=== PATIENT | male | born 1945 | race Caucasian/White ===

== ENCOUNTER → 2017-04-16 | Outpatient (CLI) | payer OTHER ==
[~2017-04-16] MED LIST: IOPAMIDOL (ISOVUE 370) 100 ML BTL IV ONE
== END ==
LOC: FIMAGING 14:58
PROVIDERS: ATTEND Internal Medicine Cardiovascular Disease
DX: I48.91 Unspecified atrial fibrillation (principal); I77.810 Thoracic aortic ectasia
CPT/HCPCS: 75572; Q9967

== ENCOUNTER 2017-04-19 11:19 | Observation (INO) | payer OTHER ==
[2017-04-19] MEDS ORDERED: NS 1,000 ML IV ONE (11:22)
--- NOTE | 2017-04-19 11:58 | CPEKG ---
Heart Rate: 87 RR Interval: 690 QRSD Interval: 84 QT Interval: 348 QTC Interval: 419 QRS [place]: -38 T Wave [place]: -5 EKG Severity - ABNORMAL ECG - EKG Impression: ATRIAL FIBRILLATION, V-RATE 74-111 EKG Impression: LOW VOLTAGE IN FRONTAL LEADS EKG Impression: BORDERLINE T ABNORMALITIES, INFERIOR LEADS EKG Impression: ATRIAL FIBRILLATION IS NEW IN COMPARISON TO PRIOR ECG Electronically Signed By: Josh Palumbo 20-Apr-2017 09:21:37
--- NOTE | 2017-04-19 11:58 | CPEKG ---
Heart Rate: 87 RR Interval: 690 QRSD Interval: 84 QT Interval: 348 QTC Interval: 419 QRS [place]: -38 T Wave [place]: -5 EKG Severity - ABNORMAL ECG - EKG Impression: ATRIAL FIBRILLATION, V-RATE 74-111 EKG Impression: LOW VOLTAGE IN FRONTAL LEADS EKG Impression: BORDERLINE T ABNORMALITIES, INFERIOR LEADS EKG Impression: ATRIAL FIBRILLATION IS NEW IN COMPARISON TO PRIOR ECG Electronically Signed By: Josh Palumbo 20-Apr-2017 09:21:37
--- NOTE | 2017-04-19 12:14 | PDHPUP ---
History & Physical Update H&P update statement: This history and physical update is based on an assessment of the patient which was completed after admission or registration (within 24 hours), but prior to the surgery/procedure. H&P update: H&P reviewed & patient examined, no change in patient's condition since H&P completed
[2017-04-19] MEDS ORDERED: BUPIVACAINE 0.5% 30 ML SDV ONE (12:23)
[2017-04-19] MEDS ORDERED: HEPARIN/DEXTROSE 25,000 UNIT/500 ML BAG ONE (12:23)
[2017-04-19] MEDS ORDERED: HEPARIN 10,000 UNIT/10 ML MDV ONE (12:23)
[2017-04-19] MEDS ORDERED: LIDOCAINE 1% 300 MG/30 ML SDV ONE (12:23)
[2017-04-19] MEDS ORDERED: IOPAMIDOL (ISOVUE-300) 100 ML BTL ONE ×3 (12:24→16:17)
[2017-04-19 12:35] LABS: PLATELET COUNT 212 10^3/uL (150-400)
[2017-04-19 12:43] LABS: INR 1.1 (0.83-1.16); PROTIME(PATIENT) 14.1 SEC (12.0-15.0)
--- NOTE | 2017-04-19 12:58 | PDGENHP ---
History & Physical Chief Complaint: Symptomatic AF History of Present Illness: AF Pertinent Past, Social, Family History: None Relevant Physical Exam: CTA No rales or rhonchii. S1S2 irregular
--- NOTE | 2017-04-19 12:59 | PDANEPAE ---
ANE History of Present Illness ep ANE Past Medical History - Cardiovascular History Hx Hypertension: No Hx Arrhythmias: Yes Hx Chest Pain: No Hx Coronary Artery / Peripheral Vascular Disease: No Hx CHF / Valvular Disease: No Hx Palpitations: No - Pulmonary History Hx COPD: No Hx Asthma/Reactive Airway Disease: No Hx Recent Upper Respiratory Infection: No Hx Oxygen in Use at Home: No Hx Sleep Apnea: Yes - Neurologic History Hx Cerebrovascular Accident: No Hx Seizures: No Hx Dementia: No - Endocrine History Hx Diabetes: No - Renal History Hx Renal Disorders: No - Liver History Hx Hepatic Disorders: No - Neurological & Psychiatric Hx Hx Neurological and Psychiatric Disorders: No - Cancer History Hx Cancer: No - Chronic Pain History Chronic Pain: No ANE Review of Systems Review of Systems: - Exercise capacity METS (RN): 4 METS ANE Patient History - Allergies Allergies/Adverse Reactions: gluten Allergy (Verified 02/16/16 12:41) Milk Containing Products [dairy] Allergy (Verified 02/16/16 12:41) Penicillins Allergy (Verified 04/12/17 10:54) - Home Medications Home Medications: Apixaban [Eliquis] 5 mg PO BID 02/16/16 [Last Taken 04/17/17 21:00] Levothyroxine [Synthroid 100 mcg (*)] 100 mcg PO DAILY06 02/16/16 [Last Taken ] Vit A/Vit C/Vit E/Zinc/Copper [Preservision Areds Softgel] 1 each PO BID [Last Taken 05/01/16] Herbals/Supplements -Info Only 1 each PO DAILY 04/19/17 [Last Taken Unknown] Metoprolol Tartrate [Lopressor 25 mg (*)] 25 mg PO BID 04/19/17 [Last Taken 21:00] - Smoking Hx Smoking Status: Former smoker ANE Labs/Vital Signs - Labs Result Diagrams: 04/19/17 12:20 04/19/17 12:20 - Vital Signs Height: 182.88 cm Weight: 68.946 kg ANE Physical Exam - Airway Mallampati Score: Class 2 Mouth exam: normal dental/mouth exam - Pulmonary Pulmonary: no respiratory distress - Cardiovascular Cardiovascular: regular rate and rhythym - ASA Status ASA Status: II ANE Anesthesia Plan Anesthesia Plan: general endotracheal anesthesia
[2017-04-19] MEDS ORDERED: MIDAZOLAM 2 MG/2 ML VIAL IVP ONE (13:00)
[2017-04-19] MEDS ORDERED: MIDAZOLAM 2 MG/2 ML VIAL ONE (13:03)
[2017-04-19] MEDS ORDERED: PROPOFOL 200 MG/20 ML VIAL ONE (13:05)
[2017-04-19] MEDS ORDERED: DEXAMETHASONE 4 MG/ML VIAL ONE (13:05)
[2017-04-19] MEDS ORDERED: fentaNYL 100 MCG/2 ML INJ ONE (13:05)
[2017-04-19] MEDS ORDERED: ROCURONIUM 50 MG/5 ML VIAL ONE (13:05)
[2017-04-19] MEDS ORDERED: PHENYLEPHRINE HCL 100 MCG/ML SYR ONE (13:45)
[2017-04-19] MEDS ORDERED: PHENYLEPHRINE 10 MG/ML SDV ONE (16:06)
[2017-04-19] MEDS ORDERED: PROTAMINE SULFATE 50 MG/5 ML VIAL IVP ONE (16:17)
[2017-04-19] MEDS ORDERED: SUGAMMADEX SODIUM 200 MG/2 ML VIAL IVP ONE (16:31)
[2017-04-19] MEDS ORDERED: OXYCODONE/APAP 5/325 TAB PO PRN (16:43)
[2017-04-19] MEDS ORDERED: ONDANSETRON 4 MG/2 ML VIAL IVP PRN (16:43)
[2017-04-19] MEDS ORDERED: ACETAMINOPHEN 325 MG TAB PO PRN (16:43)
[2017-04-19] MEDS ORDERED: NALOXONE HCL 0.4 MG/ML INJ IVP PRN (16:59)
[2017-04-19] MEDS ORDERED: fentaNYL 100 MCG/2 ML INJ IVP PRN (16:59)
--- NOTE | 2017-04-19 16:59 | POSTANESTH ---
Post Anesthetic Evaluation Cardiovascular Status: Normal, Stable Respiratory Status: Normal, Stable Level of Consciousness/Mental Status: Can Participate in Eval Pain Control: Adequate, Prn Tx Ordered Nausea/Vomiting Control: Adequate, Prn Tx Ordered Complications Possibly Related to Anesthesia: None Noted
[2017-04-19] MEDS ORDERED: ATROPINE SULFATE 1 MG/10 ML SYR ONE (17:31)
[2017-04-19] MEDS: PRESERVISION AREDS2 FORMULA EYE VIT 1 EACH PO SCH (20:41)
[2017-04-19] MEDS ORDERED: NON-FORMULARY NEW DRUG (Vit A/Vit C/Vit E/Zinc/Copper [Preservision Areds Softgel] 1 EACH) PO SCH (21:00)
[2017-04-20] MEDS ORDERED: ENOXAPARIN 80 MG/0.8 ML SYR SC ONE (01:00)
[2017-04-20 04:50] LABS: PLATELET COUNT 186 10^3/uL (150-400)
[2017-04-20 04:59] LABS: INR 1.16 (0.83-1.16); PROTIME(PATIENT) 14.8 SEC (12.0-15.0)
[2017-04-20 05:15] VITALS: TEMP 98.1
[2017-04-20 05:39] LABS: CREATINE KINASE 200 IU/L (0-224)
[2017-04-20] MEDS ORDERED: LEVOTHYROXINE 100 MCG TAB PO SCH (06:00)
--- NOTE | 2017-04-20 08:36 | CPEKG ---
Heart Rate: 80 RR Interval: 750 P-R Interval: 208 QRSD Interval: 82 QT Interval: 368 QTC Interval: 425 P [place]: 18 QRS [place]: 77 T Wave [place]: -23 EKG Severity - BORDERLINE ECG - EKG Impression: SINUS RHYTHM EKG Impression: LOW VOLTAGE IN FRONTAL LEADS EKG Impression: BORDERLINE T ABNORMALITIES, INFERIOR LEADS EKG Impression: SINUS RHYTHM HAS REPLACED ATRIAL FIBRILLATION ON PRIOR Electronically Signed By: Josh Palumbo 20-Apr-2017 09:22:33
--- NOTE | 2017-04-20 08:36 | CPEKG ---
Heart Rate: 80 RR Interval: 750 P-R Interval: 208 QRSD Interval: 82 QT Interval: 368 QTC Interval: 425 P [place]: 18 QRS [place]: 77 T Wave [place]: -23 EKG Severity - BORDERLINE ECG - EKG Impression: SINUS RHYTHM EKG Impression: LOW VOLTAGE IN FRONTAL LEADS EKG Impression: BORDERLINE T ABNORMALITIES, INFERIOR LEADS EKG Impression: SINUS RHYTHM HAS REPLACED ATRIAL FIBRILLATION ON PRIOR Electronically Signed By: Josh Palumbo 20-Apr-2017 09:22:33
[2017-04-20] MEDS ORDERED: APIXABAN 5 MG TAB PO SCH (09:00)
[2017-04-20] MEDS ORDERED: Herbals/Supplements -Info Only PO SCH (09:00)
[2017-04-20] MEDS ORDERED: PANTOPRAZOLE SODIUM 40 MG TAB PO SCH (09:15)
[2017-04-20] MEDS ORDERED: METOPROLOL TARTRATE 25 MG TAB PO SCH (09:15)
[2017-04-20] MEDS: PRESERVISION AREDS2 FORMULA EYE VIT 1 EACH PO SCH (09:18)
--- NOTE | 2017-04-20 10:04 | ECHO ---
[email or web address] [address] [address] Main: [phone] Fax: Transthoracic Echocardiogram Name: EVERARDO DÍAZ MR#: [id number] Study Date: 04/20/2017 Study Time: 08:37 AM Date of : 1945 Age: 71 year(s) Height: 182.9 cm (72 in.) Weight: 68.95 kg (152 lb.) BSA: 1.9 m2 Gender: Male Examination: Echo Indication: Post EP Image Quality: Contrast: Requested by: Jadon Quinteros BP: 98 mmHg/68 mmHg Heart Rate: Rhythm: Normal sinus rhythm with ectopy Indication: Post EP Procedure Staff Bunch Maker Hand: Jonathan Gonsalez Reading Physician: Nixon Richardson Requesting Provider: Conclusions: Normal left ventricular size and function. Ejection fraction 79%. Mild to moderate mitral regurgitation mild bileaflet prolapse. Mild tricuspid regurgitation. Right ventricular systolic pressure 31 mm of mercury. No pericardial effusion Measurements: Chambers Valvular Assessment AV/MV Valvular Assessment TV/PV Normal Normal Normal Name Value Range Name Value Range Name Value Range Ao Irina (MM): 4.2 cm (2.2 cm-3.7 AV Vmax: 0.92 m/s (1 m/s-1.7 TR Vmax: 3.79 mm/s ( - ) cm) m/s) TR PGmax: 26 mmHg ( - ) IVSd (2D): 0.8 cm (0.6 cm-1.1 AV maxP mmHg ( - ) syst. PAP: 31 mmHg ( - ) cm) AV meanP mmHg ( - ) PV Vmax: 0.60 m/s (0.6 m/s-0.9 LVDd (2D): 5.0 cm (4.2 cm-5.9 LVOT Vmax: 0.86 m/s (0.7 m/s-1.1 m/s) cm) m/s) PV PGmax: 1 mmHg ( - ) LVDs (2D): 2.6 cm (2.1 cm-4 HENRI (Vmax): 2.9 cm2 ( - ) cm) HENRI (VTI): 2.6 cm ( - ) LVPWd (2D): 0.9 cm (0.6 cm-1 MV meanP mmHg ( - ) cm) MVA (Vmax): 2.8 m/s ( - ) LVOTd 2.0 cm 2.0 cm mm LVEF (2D): 79 (>=54 %) Continued Measurements: Chambers Valvular Assessment AV/MV Valvular Assessment TV/PV Name Value Name Value Name Value LADs Lon.0 cm MV Annulus: 3.1 cm CVP (est.): 5 mmHg LA Area: 17.0 cm2 MV VTI: 16.30 cm LA Volume: 49 ml MR ERO: 0.150 cm2 LA Volume Index: 25.8 ml/m2 MR PISA radius: 6 mm MR Reg. Volume: 17 ml Patient: EVERARDO DÍAZ Study Date: 04/20/2017 Page 1 of 2 08:37 AM MR Reg. Fraction: 14 % Findings: Left Ventricle: Normal size left ventricle. No LV hypertrophy. Normal global systolic LV function. EF is 79 %. No regional wall motion abnormality. Normal diastolic LV function. Right Ventricle: Normal size right ventricle. Left Atrium: The left atrium is normal in size. Right Atrium: The right atrium is normal in size. Mitral Valve: There is mild bileaflet mitral valve prolapse. Mild to moderate mitral regurgitation. Aortic Valve: The aortic valve is normal in appearance and function. The aortic valve is tri-leaflet. Tricuspid Valve: Mild tricuspid regurgitation is present. There is known mild tricuspid valve prolapse. Right Ventricular systolic pressure is measured at 31 mmHg. Pulmonic Valve: The pulmonic valve is normal in appearance and function. Aorta: The aorta is normal. Pericardium: Trivial anterior pericardial effusion. Exam Comments: Small runs ectopy noted during exam.. (No Signature Object) Patient: EVERARDO DÍAZ Study Date: 04/20/2017 Page 2 of 2 08:37 AM [id number]
--- NOTE | 2017-04-20 10:04 | ECHO ---
[email or web address] [address] [address] Main: [phone] Fax: Transthoracic Echocardiogram Name: EVERARDO DÍAZ MR#: [id number] Study Date: 04/20/2017 Study Time: 08:37 AM Date of : 1945 Age: 71 year(s) Height: 182.9 cm (72 in.) Weight: 68.95 kg (152 lb.) BSA: 1.9 m2 Gender: Male Examination: Echo Indication: Post EP Image Quality: Contrast: Requested by: Jadon Quinteros BP: 98 mmHg/68 mmHg Heart Rate: Rhythm: Normal sinus rhythm with ectopy Indication: Post EP Procedure Staff Scuba Diving Instructor: Jonathan Gonsalez Reading Physician: Nixon Richardson Requesting Provider: Conclusions: Normal left ventricular size and function. Ejection fraction 79%. Mild to moderate mitral regurgitation mild bileaflet prolapse. Mild tricuspid regurgitation. Right ventricular systolic pressure 31 mm of mercury. No pericardial effusion Measurements: Chambers Valvular Assessment AV/MV Valvular Assessment TV/PV Normal Normal Normal Name Value Range Name Value Range Name Value Range Ao Irina (MM): 4.2 cm (2.2 cm-3.7 AV Vmax: 0.92 m/s (1 m/s-1.7 TR Vmax: 3.79 mm/s ( - ) cm) m/s) TR PGmax: 26 mmHg ( - ) IVSd (2D): 0.8 cm (0.6 cm-1.1 AV maxP mmHg ( - ) syst. PAP: 31 mmHg ( - ) cm) AV meanP mmHg ( - ) PV Vmax: 0.60 m/s (0.6 m/s-0.9 LVDd (2D): 5.0 cm (4.2 cm-5.9 LVOT Vmax: 0.86 m/s (0.7 m/s-1.1 m/s) cm) m/s) PV PGmax: 1 mmHg ( - ) LVDs (2D): 2.6 cm (2.1 cm-4 HENRI (Vmax): 2.9 cm2 ( - ) cm) HENRI (VTI): 2.6 cm ( - ) LVPWd (2D): 0.9 cm (0.6 cm-1 MV meanP mmHg ( - ) cm) MVA (Vmax): 2.8 m/s ( - ) LVOTd 2.0 cm 2.0 cm mm LVEF (2D): 79 (>=54 %) Continued Measurements: Chambers Valvular Assessment AV/MV Valvular Assessment TV/PV Name Value Name Value Name Value LADs Lon.0 cm MV Annulus: 3.1 cm CVP (est.): 5 mmHg LA Area: 17.0 cm2 MV VTI: 16.30 cm LA Volume: 49 ml MR ERO: 0.150 cm2 LA Volume Index: 25.8 ml/m2 MR PISA radius: 6 mm MR Reg. Volume: 17 ml Patient: EVERARDO DÍAZ Study Date: 04/20/2017 Page 1 of 2 08:37 AM MR Reg. Fraction: 14 % Findings: Left Ventricle: Normal size left ventricle. No LV hypertrophy. Normal global systolic LV function. EF is 79 %. No regional wall motion abnormality. Normal diastolic LV function. Right Ventricle: Normal size right ventricle. Left Atrium: The left atrium is normal in size. Right Atrium: The right atrium is normal in size. Mitral Valve: There is mild bileaflet mitral valve prolapse. Mild to moderate mitral regurgitation. Aortic Valve: The aortic valve is normal in appearance and function. The aortic valve is tri-leaflet. Tricuspid Valve: Mild tricuspid regurgitation is present. There is known mild tricuspid valve prolapse. Right Ventricular systolic pressure is measured at 31 mmHg. Pulmonic Valve: The pulmonic valve is normal in appearance and function. Aorta: The aorta is normal. Pericardium: Trivial anterior pericardial effusion. Exam Comments: Small runs ectopy noted during exam.. (No Signature Object) Patient: EVERARDO DÍAZ Study Date: 04/20/2017 Page 2 of 2 08:37 AM [id number]
--- NOTE | 2017-04-20 10:04 | ECHO ---
[email or web address] [address] [address] Main: [phone] Fax: Transthoracic Echocardiogram Name: EVERARDO DÍAZ MR#: [id number] Study Date: 04/20/2017 Study Time: 08:37 AM Date of : 1945 Age: 71 year(s) Height: 182.9 cm (72 in.) Weight: 68.95 kg (152 lb.) BSA: 1.9 m2 Gender: Male Examination: Echo Indication: Post EP Image Quality: Contrast: Requested by: Jadon Quinteros BP: 98 mmHg/68 mmHg Heart Rate: Rhythm: Normal sinus rhythm with ectopy Indication: Post EP Procedure Staff Nurse Special: Jonathan Gonsalez Reading Physician: Nixon Richardson Requesting Provider: Conclusions: Normal left ventricular size and function. Ejection fraction 79%. Mild to moderate mitral regurgitation mild bileaflet prolapse. Mild tricuspid regurgitation. Right ventricular systolic pressure 31 mm of mercury. No pericardial effusion Measurements: Chambers Valvular Assessment AV/MV Valvular Assessment TV/PV Normal Normal Normal Name Value Range Name Value Range Name Value Range Ao Irina (MM): 4.2 cm (2.2 cm-3.7 AV Vmax: 0.92 m/s (1 m/s-1.7 TR Vmax: 3.79 mm/s ( - ) cm) m/s) TR PGmax: 26 mmHg ( - ) IVSd (2D): 0.8 cm (0.6 cm-1.1 AV maxP mmHg ( - ) syst. PAP: 31 mmHg ( - ) cm) AV meanP mmHg ( - ) PV Vmax: 0.60 m/s (0.6 m/s-0.9 LVDd (2D): 5.0 cm (4.2 cm-5.9 LVOT Vmax: 0.86 m/s (0.7 m/s-1.1 m/s) cm) m/s) PV PGmax: 1 mmHg ( - ) LVDs (2D): 2.6 cm (2.1 cm-4 HENRI (Vmax): 2.9 cm2 ( - ) cm) HENRI (VTI): 2.6 cm ( - ) LVPWd (2D): 0.9 cm (0.6 cm-1 MV meanP mmHg ( - ) cm) MVA (Vmax): 2.8 m/s ( - ) LVOTd 2.0 cm 2.0 cm mm LVEF (2D): 79 (>=54 %) Continued Measurements: Chambers Valvular Assessment AV/MV Valvular Assessment TV/PV Name Value Name Value Name Value LADs Lon.0 cm MV Annulus: 3.1 cm CVP (est.): 5 mmHg LA Area: 17.0 cm2 MV VTI: 16.30 cm LA Volume: 49 ml MR ERO: 0.150 cm2 LA Volume Index: 25.8 ml/m2 MR PISA radius: 6 mm MR Reg. Volume: 17 ml Patient: EVERARDO DÍAZ Study Date: 04/20/2017 Page 1 of 2 08:37 AM MR Reg. Fraction: 14 % Findings: Left Ventricle: Normal size left ventricle. No LV hypertrophy. Normal global systolic LV function. EF is 79 %. No regional wall motion abnormality. Normal diastolic LV function. Right Ventricle: Normal size right ventricle. Left Atrium: The left atrium is normal in size. Right Atrium: The right atrium is normal in size. Mitral Valve: There is mild bileaflet mitral valve prolapse. Mild to moderate mitral regurgitation. Aortic Valve: The aortic valve is normal in appearance and function. The aortic valve is tri-leaflet. Tricuspid Valve: Mild tricuspid regurgitation is present. There is known mild tricuspid valve prolapse. Right Ventricular systolic pressure is measured at 31 mmHg. Pulmonic Valve: The pulmonic valve is normal in appearance and function. Aorta: The aorta is normal. Pericardium: Trivial anterior pericardial effusion. Exam Comments: Small runs ectopy noted during exam.. (No Signature Object) Patient: EVERARDO DÍAZ Study Date: 04/20/2017 Page 2 of 2 08:37 AM [id number]
--- NOTE | 2017-04-20 12:40 | EPPROC ---
Electrophysiology Procedure Note: Procedures performed: 17945-55 EP evaluation with RA/RV/LA pace/record, with arrhythmia induction 54349-67 EP evaluation with RA/RV pace record, insert/reposition catheter, with arrhythmia induction 42293 Atrial fibrillation ablation Intracardiac echocardiogram Transseptal puncture Fluoroscopy CV INDICATION: Paroxysmal atrial fibrillation PROCEDURE: The patient arrived in the Electrophysiology Laboratory in the fasting state. The right groin, left groin and right infraclavicular area were prepped and draped in the usual sterile fashion. Anesthesiologist administered general anesthesia All catheters were placed percutaneously using the Seldinger technique and advanced into position under fluoroscopic guidance. One #7 Italian deflectable octapolar electrode catheter was placed in the His-bundle position via the left femoral vein (2mm spacing, IVC electrode for unipolar recordings). This catheter was placed in the coronary sinus after transseptal puncture and later placed in the SVC-R subclavian vein junction to pace the right phrenic nerve during right pulmonary vein ablation. One #8 Italian AcuNaV ultrasound catheter was placed in the left femoral vein and advanced into the right atrium. One #4 Italian sheath was inserted into the left femoral artery via percutaneous technique and used for continuous arterial blood pressure monitoring and intermittent ACT determination. Programmed stimulation was performed from the right atrium, left atrium (CS) and right ventricle. There was no evidence of AV accessory pathway. Intracardiac echo evaluation of the left atrium and pulmonary veins was performed. Baseline ACT was drawn and heparin bolus was administered and heparin drip was started prior to transseptal puncture. ACT was checked every 15 minutes and maintained in the range of 350-400 seconds. One 14Fr short sheath was placed in the right femoral vein. One 8Fr SL1 sheath was advanced into the right atrium via the 14Fr short sheath. Transseptal puncture was performed under intracardiac ultrasound, fluoroscopic and hemodynamic guidance placing the sheath into the left atrium. [place] RF needle ( C0 curve) was used. The mean left atrial pressure was 8 mmHg. Pulmonary vein angiogram was done using SL1 sheath. CT angiography of pulmonary veins was done previously. There were distinct LSPV, LIPV, RSPV and RIPV. There were two small additional veins on the right side The SL1 sheath was exchanged for a Produce Runtronic Flexcath sheath using an Amplatz stiff guide wire. A 28 mm Cryoballoon catheter with a 20 mm Achieve catheter was placed via the sheath into the left atrium. Intracardiac ultrasound and PV angiograms were used to assist in placing the mapping catheter at the antrum of the pulmonary veins. All pulmonary veins were isolated successfully using cryoballoon ablation using freeze/thaw/freeze cycles at 2-3-minute intervals, with good [id number] of isolation. Coumadin ridge/Ligament of [place] region was ablated. Pre and post pulmonary vein recordings were measured on the spiral Achieve catheter to ensure complete pulmonary vein isolation. During the right-sided ablation, phrenic nerve pacing was performed to assess the phrenic nerve strength ( manually and with ICE visualization of liver movement during phrenic capture) and the phrenic nerve was intact throughout the right-sided ablation and at the end of the procedure. An esophageal temperature probe (12 electrode, Circa) was placed by the anesthesiologist at the beginning of the procedure. Esophageal temperature was monitored continuously and cryoablation was interrupted if esophageal temperature was <15 C. CV was performed after the first lesion and SR maintained. All 6 veins underwent ablation. Small pulmonary vein on the right side which was above the RIPV obtained temperature of -32 degrees for 120sec. Rest of the veins went from -40 to -56 degrees for 90 to 180sec. . There was no spontaneous atrial fibrillation. Mapping of all 4 pulmonary veins after isoproterenol infusion showed that all 4 pulmonary veins remained isolated. ICE imaging post ablation was consistent with pre ablation imaging with no changes noted, moreover there was no left atrial/left ventricular thrombus and no pericardial effusion. The catheters were withdrawn. Protamine was given. The sheaths were removed and manual pressure was used for hemostasis. The patient was recovered from anesthesia. There were no complications. The patient was arousable and moving all four extremities at the end of the procedure. Results: Six pulmonary veins. Good contact and lesions in all veins except small branch above the RIPV. However, this vein had no PV potentials. CONCLUSIONS: * Paroxysmal atrial fibrillation. * Successful pulmonary vein isolation procedure (left and right pulmonary vein antrum) using cryoballoon ablation. * No apparent complications. Patient Problems: Problems Problem Status Onset Afib Acute
--- NOTE | 2017-04-20 12:40 | EPPROC ---
Electrophysiology Procedure Note: Procedures performed: 46561-15 EP evaluation with RA/RV/LA pace/record, with arrhythmia induction 05315-07 EP evaluation with RA/RV pace record, insert/reposition catheter, with arrhythmia induction 38530 Atrial fibrillation ablation Intracardiac echocardiogram Transseptal puncture Fluoroscopy CV INDICATION: Paroxysmal atrial fibrillation PROCEDURE: The patient arrived in the Electrophysiology Laboratory in the fasting state. The right groin, left groin and right infraclavicular area were prepped and draped in the usual sterile fashion. Anesthesiologist administered general anesthesia All catheters were placed percutaneously using the Seldinger technique and advanced into position under fluoroscopic guidance. One #7 Danish deflectable octapolar electrode catheter was placed in the His-bundle position via the left femoral vein (2mm spacing, IVC electrode for unipolar recordings). This catheter was placed in the coronary sinus after transseptal puncture and later placed in the SVC-R subclavian vein junction to pace the right phrenic nerve during right pulmonary vein ablation. One #8 Danish AcuNaV ultrasound catheter was placed in the left femoral vein and advanced into the right atrium. One #4 Danish sheath was inserted into the left femoral artery via percutaneous technique and used for continuous arterial blood pressure monitoring and intermittent ACT determination. Programmed stimulation was performed from the right atrium, left atrium (CS) and right ventricle. There was no evidence of AV accessory pathway. Intracardiac echo evaluation of the left atrium and pulmonary veins was performed. Baseline ACT was drawn and heparin bolus was administered and heparin drip was started prior to transseptal puncture. ACT was checked every 15 minutes and maintained in the range of 350-400 seconds. One 14Fr short sheath was placed in the right femoral vein. One 8Fr SL1 sheath was advanced into the right atrium via the 14Fr short sheath. Transseptal puncture was performed under intracardiac ultrasound, fluoroscopic and hemodynamic guidance placing the sheath into the left atrium. [place] RF needle ( C0 curve) was used. The mean left atrial pressure was 8 mmHg. Pulmonary vein angiogram was done using SL1 sheath. CT angiography of pulmonary veins was done previously. There were distinct LSPV, LIPV, RSPV and RIPV. There were two small additional veins on the right side The SL1 sheath was exchanged for a [employer] Tourstronic Flexcath sheath using an Amplatz stiff guide wire. A 28 mm Cryoballoon catheter with a 20 mm Achieve catheter was placed via the sheath into the left atrium. Intracardiac ultrasound and PV angiograms were used to assist in placing the mapping catheter at the antrum of the pulmonary veins. All pulmonary veins were isolated successfully using cryoballoon ablation using freeze/thaw/freeze cycles at 2-3-minute intervals, with good [id number] of isolation. Coumadin ridge/Ligament of [place] region was ablated. Pre and post pulmonary vein recordings were measured on the spiral Achieve catheter to ensure complete pulmonary vein isolation. During the right-sided ablation, phrenic nerve pacing was performed to assess the phrenic nerve strength ( manually and with ICE visualization of liver movement during phrenic capture) and the phrenic nerve was intact throughout the right-sided ablation and at the end of the procedure. An esophageal temperature probe (12 electrode, Circa) was placed by the anesthesiologist at the beginning of the procedure. Esophageal temperature was monitored continuously and cryoablation was interrupted if esophageal temperature was <15 C. CV was performed after the first lesion and SR maintained. All 6 veins underwent ablation. Small pulmonary vein on the right side which was above the RIPV obtained temperature of -32 degrees for 120sec. Rest of the veins went from -40 to -56 degrees for 90 to 180sec. . There was no spontaneous atrial fibrillation. Mapping of all 4 pulmonary veins after isoproterenol infusion showed that all 4 pulmonary veins remained isolated. ICE imaging post ablation was consistent with pre ablation imaging with no changes noted, moreover there was no left atrial/left ventricular thrombus and no pericardial effusion. The catheters were withdrawn. Protamine was given. The sheaths were removed and manual pressure was used for hemostasis. The patient was recovered from anesthesia. There were no complications. The patient was arousable and moving all four extremities at the end of the procedure. Results: Six pulmonary veins. Good contact and lesions in all veins except small branch above the RIPV. However, this vein had no PV potentials. CONCLUSIONS: * Paroxysmal atrial fibrillation. * Successful pulmonary vein isolation procedure (left and right pulmonary vein antrum) using cryoballoon ablation. * No apparent complications. Patient Problems: Problems Problem Status Onset Afib Acute
--- NOTE | 2017-04-20 13:45 | ASMTCMCOM ---
CM Note CM Note Notes: Patient admitted for A-fib ablation today. Per RN, patient was a bit "unsteady" when first OOB but better after up for a bit. PT eval ordered. Patient lives with so will likely discharge home independently. CM can order homecare if needed. Date Signed: 04/20/2017 01:45 PM Electronically Signed By:Neha Gonzáles RN
[2017-04-20 14:24] VITALS: PULSE 72; O2SAT 98
[2017-04-20 14:26] VITALS: BP 105/77; RESP 19
[2017-04-20] MEDS ORDERED: PNEUMOC 13-VAL CONJ-DIP CRM/PF 0.5 ML SYR IM ONE (14:40)
--- NOTE | 2017-04-20 14:44 | PDIAF ---
- Diagnosis Code Status: Full Code - Medication Management Discharge Medications: Medications to Continue on Transfer Apixaban [Eliquis] 5 mg PO BID 02/16/16 [Last Taken 04/17/17 21:00] Levothyroxine [Synthroid 100 mcg (*)] 100 mcg PO DAILY06 02/16/16 [Last Taken ] Vit A/Vit C/Vit E/Zinc/Copper [Preservision Areds Softgel] 1 each PO BID [Last Taken 05/01/16] Herbals/Supplements -Info Only 1 each PO DAILY 04/19/17 [Last Taken Unknown] Metoprolol Tartrate [Lopressor 25 mg (*)] 25 mg PO BID 04/19/17 [Last Taken 21:00] Pantoprazole Sodium [Protonix 40mg (*)] 40 mg PO DAILY #30 tab 04/20/17 [Last Taken Unknown] Discharge Medications: Refer to the Discharge Home Medication list for PRN reason. - Orders Services needed: Home Care, Physical Therapy Home Care Face to Face: I certify that this patient was under my care and that I had the required [id number] encounter meeting the encounter requirements on the discharge day. My findings support the fact that the patient is homebound as defined in Home Care Face to Face Continued: CMS Chapter 7 Medicare Benefits Manual 30.1.1 , The condition of the patient is such that there exists a normal inability to leave home and consequently, leaving home would require a considerable and taxing effort. Diet Recommendation: cardiac -low fat low salt - Follow Up Care Current Providers and Referrals: Warren Waldron MD [Primary Care Provider] - Jadon Quinteros MD [Medical Doctor] - (Follow up with Dr. Clayton May 02 at 9: 30 a.m.)
--- NOTE | 2017-04-20 14:47 | ASMTCMCOM ---
CM Note CM Note Notes: ERICK Duong recommended home PT for patient who is in agreement. Donya at [facility] accepts patient for home PT. Orders written by [facility] COMMUNICATION SIGNALS INTELLIGENCE. Address/phone confirmed with patient. CARSON Boyce to call report. Patient's to transport home. Date Signed: 04/20/2017 02:47 PM Electronically Signed By:Neha Gonzáles RN
--- NOTE | 2017-04-20 14:47 | ASMTCMCOM ---
CM Note CM Note Notes: ERICK Duong recommended home PT for patient who is in agreement. Donya at [facility] accepts patient for home PT. Orders written by [facility] ASW/[facility] TACTICAL AIR CONTROLLER. Address/phone confirmed with patient. CARSON Boyce to call report. Patient's to transport home. Date Signed: 04/20/2017 02:47 PM Electronically Signed By:Neha Gonzáles RN
--- NOTE | 2017-04-20 14:47 | ASMTCMCOM ---
CM Note CM Note Notes: ERICK Duong recommended home PT for patient who is in agreement. Donya at [facility] accepts patient for home PT. Orders written by [facility] COAGULATING BATH OPERATOR. Address/phone confirmed with patient. CARSON Boyce to call report. Patient's to transport home. Date Signed: 04/20/2017 02:47 PM Electronically Signed By:Neha Gonzáles RN
--- NOTE | 2017-04-20 16:03 | GDS ---
[f rep st] DISCHARGE SUMMARY ADMISSION DIAGNOSES: 1. Paroxysmal atrial fibrillation. 2. Hypothyroidism. 3. Mitral regurgitation. 4. Mitral valve prolapse. 5. Pulmonary artery hypertension. DIAGNOSIS DIAGNOSES: 1. Paroxysmal atrial fibrillation. 2. Status post cryo balloon ablation for atrial fibrillation. 3. Hypothyroidism. 4. Mitral regurgitation. 5. Mitral valve prolapse. 6. Pulmonary artery hypertension. PROCEDURES DONE DURING HOSPITALIZATION: 1. Electrocardiogram. 2. Electrophysiology study. 3. Isolating cryo balloon pulmonary vein isolation for atrial fibrillation ablation. 4. Echocardiogram. BRIEF HISTORY: Please see H and P. Briefly, the patient is a 71-year-old male with known history of paroxysmal atrial fibrillation, bileaflet mitral valve prolapse, and moderate to severe mitral regur gitation. He has been dealing with paroxysmal atrial fibrillation since 2013, reporting worsening sy mptoms when he is in atrial fibrillation, fatigue and lightheadedness. The patient was evaluated by Dr. Quinteros, felt to be appropriate candidate, and scheduled for cryo balloon ablation for atrial fibril lation. The patient was admitted to [facility], prepped for procedure, and taken to the electrophysiology l ab. There, Dr. Quinteros performed cryo balloon ablation, electrophysiology study, followed by a pulmonar y vein isolation with cryo balloon ablation for atrial fibrillation and ablation technique. No compl ications. The patient was transferred to the Intensive Care Unit for overnight observation. Through out the night, he has been noted to have multiple episodes of small bursts of atrial fibrillation, la sting 9-10 seconds with ventricular rates up to 150 beats per minute. He has been asymptomatic to th milagro symptoms. This morning he has been restarted on his beta-emmanuel, and no further episodes since then. He had no bleeding issues throughout the evening. Besides atrial fibrillation, his vital sign s have been stable. He has been up and walking the unit. He does have a neurological disorder, and was noted by ICU nurses to have this. Per his , this is his baseline. Per the ICU nurses they w ere concerned about potential falls, and so PT eval was ordered. Subsequently, the patient does qual [facility] for home PT, and this has been set up for him. PHYSICAL EXAMINATION: GENERAL APPEARANCE: Thin, well-groomed, male. He is alert and orie nted to person, place, time, and situation. Appears to be under no acute distress. VITAL SIGNS: Bl ood pressure of 105/70, heart rate of 72, respirations 19, saturating 98% on room air. HEENT: Head is normocephalic. Lips and tongue are pink and moist with no signs of cyanosis. Conjunctivae pink. NECK: Trachea is midline. +2 carotid pulses bilateral. No auscultated bruits. No jugular vein di stention. RESPIRATORY: Lungs clear to auscultation. No rhonchi, rales or wheezes. No accessory mu scle use. No intercostal muscle retraction noted. CARDIAC: Regular rate, regular rhythm, S1, S2. A 2-3/6 systolic murmur noted along the left sternal border. No rubs or gallops. ABDOMEN: Soft, no ntender. Bowel sounds x4 quadrants. No organomegaly. No palpable masses. SKIN: [place], warm, dry. No cyanosis, no clubbing, no peripheral edema. VASCULAR: +2 carotids bilateral, +2 radials bilater al, +1 dorsal pedal and posterior tibial pulses bilateral. : Catheter insertion site and bilatera l groin sites without redness, swelling, drainage, ecchymosis or hematoma. No auscultated bruit over either groin site. NEUROLOGICAL: The patient does have noted slurred speech and right-sided weakne ss. Per the patient and his , this is his baseline normal. The patient has been noted in the [place] [facility] for concerns of CVA, and he has been followed up with Neurology. It was recommended he continue f ollowing with Neurology. LABORATORY STUDIES: Laboratory studies drawn today show white blood cell count of 10.09, hemoglobin 12.5, hematocrit of 35.3, platelet count of 186. INR was noted to be at 1.106, sodium 137, potassium 3.7, chloride 104, CO2 of 23, BUN 14, creatinine 0.7, glucose 147, calcium 8.7. CK of 200, CK-MB fr action 11.10, CK-MB percentage 5.6, troponin 2.220. Expected elevated cardiac enzymes status post ab lation. PROCEDURES: EP procedure and cryo balloon procedure done as mentioned above. Morning electrocardiog ilir shows sinus rhythm with low voltage in frontal leads, borderline T-wave abnormalities in inferior leads. Echocardiogram this morning showing normal LV size and function with EF estimated at 79%, mi [id number] MR, mild bileaflet prolapse, mild TR, RVSP 31 mmHg, no pericardial effusion. DISCHARGE DISPOSITION: The patient will be discharged home in stable condition. He is under activit y restrictions of not lifting more than 10 pounds for the next week, and no strenuous activity for th e next 2 weeks. DISCHARGE MEDICATIONS: Please see discharge medication reconciliation sheet. Note the patient has b een resumed on home dose of metoprolol tartrate and Eliquis. The patient has also been started on Pr otonix 40 mg daily, which he will remain on for the next 6 weeks. DISCHARGE INSTRUCTIONS: Post cryo balloon ablation for atrial fibrillation. Discharge instructions went over with the patient and , including monitoring for signs of infection, bleeding precaution s, activity restrictions, bathing precautions, and the importance of medication compliance with antic oagulations, beta-blockers, and Protonix. At the time of discharge, the patient and both verbal ized understanding and have no questions. The patient has a followup appointment set with Dr. Neli fox n May 02 at 9:30 a.m. At the current time, the patient has no further questions or concerns. T he patient has been told if any concerns or questions post discharge, they are to notify our office o r return to the hospital. Total time spent on discharge greater than 30 minutes. /[id number]/MODL
== END 2017-04-20 15:42 | disposition home health service (06) ==
LOC: FCATH 11:19 → INTOOBSV 15:17 → F2N 15:17
PROVIDERS: ADMIT Internal Medicine Cardiovascular Disease; ATTEND Internal Medicine Cardiovascular Disease
PROC: 5A2204Z Restoration of Cardiac Rhythm, Single (ICD-10-PCS; principal; 2017-04-19)
PROC: 02K83ZZ Map Conduction Mechanism, Percutaneous Approach (ICD-10-PCS; principal; 2017-04-19)
PROC: 02583ZZ Destruction of Conduction Mechanism, Percutaneous Approach (ICD-10-PCS; principal; 2017-04-19)
PROC: B246ZZ3 Ultrasonography of Right and Left Heart, Intravascular (ICD-10-PCS; principal; 2017-04-19)
DX: I48.0 Paroxysmal atrial fibrillation (principal); E03.9 Hypothyroidism, unspecified; I34.1 Nonrheumatic mitral (valve) prolapse; I27.20 Pulmonary hypertension, unspecified; Z23 Encounter for immunization
CPT/HCPCS: 92960; 93005; 93306; 93312; 93656; 93662; 97161; C1731; C1732; C1733; C1759; C1766; C1893; G0009; G8978; G8979; G8980; J1100; J1644; J1650; J2250; J2370; J2704; J2720; J3010; Q9967; J0461

== ENCOUNTER 2017-05-22 12:44 | Day surgery (SDC) | payer OTHER ==
[2017-05-22] MEDS ORDERED: ASPIRIN EC 325 MG TAB PO ONE (12:48)
[2017-05-22] MEDS ORDERED: DIAZEPAM 5 MG TAB PO ONE (12:48)
[2017-05-22] MEDS ORDERED: diphenhydrAMINE 25 MG CAP PO ONE (12:48)
[2017-05-22] MEDS ORDERED: NS 1,000 ML IV ONE (12:48)
[2017-05-22] MEDS ORDERED: FAMOTIDINE 20 MG TAB PO ONE (12:48)
--- NOTE | 2017-05-22 13:24 | CPEKG ---
Heart Rate: 92 RR Interval: 652 QRSD Interval: 82 QT Interval: 368 QTC Interval: 456 QRS [facility]: -3 T Wave [facility]: 22 EKG Severity - ABNORMAL ECG - EKG Impression: ATRIAL FIBRILLATION, V-RATE 82-104 EKG Impression: LOW VOLTAGE IN FRONTAL LEADS Electronically Signed By: Sergio Moss 23-May-2017 23:05:32
[2017-05-22] MEDS ORDERED: APIXABAN 5 MG TAB PO ONE (14:00)
[2017-05-22 14:05] LABS: INR 1.08 (0.83-1.16); PROTIME(PATIENT) 14.2 SEC (12.0-15.0)
[2017-05-22] MEDS ORDERED: ATROPINE SULFATE 1 MG/10 ML SYR ONE (14:06)
[2017-05-22 14:11] LABS: ANION GAP 8 mEq/L (8-16); CALCIUM 9.3 mg/dL (8.5-10.4); CARBON DIOXIDE 26 mEq/l (22-31); CHLORIDE 105 mEq/L (97-110); CHOLESTEROL 159 mg/dL (140-220); CHOLESTEROL/HDL RATIO 2.12 RATIO (1.00-4.97); CREATININE 0.8 mg/dL (0.7-1.3); GLOMERULAR FILTRATION RATE > 60; GLUCOSE 93 mg/dL (70-100); HIGH DENSITY LIPOPROTEIN 75 mg/dL (40-65); LDL/HDL RATIO 0.96 RATIO (1.00-3.64); LOW DENSITY LIPOPROTEIN 72 mg/dL (80-100); MAGNESIUM 2.1 mg/dL (1.6-2.3); NON-HIGH DENSITY LIPOPROTEIN 84 mg/dL (90-129); POTASSIUM 4.7 mEq/L (3.5-5.2); SODIUM 139 mEq/L (134-144); TRIGLYCERIDE 64 mg/dL (40-150); VERY LOW DENSITY LIPOPROTEINS 12 mg/dL (8-25)
[2017-05-22] MEDS ORDERED: PROPOFOL 200 MG/20 ML VIAL ONE ×2 (14:25)
--- NOTE | 2017-05-22 14:53 | CPEKG ---
Heart Rate: 60 RR Interval: 1000 P-R Interval: 216 QRSD Interval: 86 QT Interval: 428 QTC Interval: 428 P Hensel: 45 QRS [place]: -31 T Wave [place]: 26 EKG Severity - ABNORMAL ECG - EKG Impression: SINUS RHYTHM EKG Impression: LOW VOLTAGE IN FRONTAL LEADS EKG Impression: FIRST DEGREE AV BLOCK Electronically Signed By: Sergio Moss 23-May-2017 23:05:20
[2017-05-22] MEDS ORDERED: ALBUTEROL 3 ML DEYVIAL IH PRN (15:06)
[2017-05-22] MEDS ORDERED: ONDANSETRON 4 MG/2 ML VIAL IVP PRN (15:06)
[2017-05-22] MEDS ORDERED: NALOXONE HCL 0.4 MG/ML INJ IVP PRN (15:06)
--- NOTE | 2017-05-22 15:06 | POSTANESTH ---
Post Anesthetic Evaluation Cardiovascular Status: Normal, Stable Respiratory Status: Normal, Stable Level of Consciousness/Mental Status: Can Participate in Eval, Alert and Oriented Pain Control: Adequate, Prn Tx Ordered Nausea/Vomiting Control: Adequate, Prn Tx Ordered Complications Possibly Related to Anesthesia: None Noted
--- NOTE | 2017-05-22 15:06 | PDANEPAE ---
ANE History of Present Illness VON + CV ANE Past Medical History - Cardiovascular History Hx Hypertension: No Hx Arrhythmias: Yes Hx Chest Pain: No Hx Coronary Artery / Peripheral Vascular Disease: No Hx CHF / Valvular Disease: No Hx Palpitations: No - Pulmonary History Hx COPD: No Hx Asthma/Reactive Airway Disease: No Hx Recent Upper Respiratory Infection: No Hx Oxygen in Use at Home: No Hx Sleep Apnea: Yes - Neurologic History Hx Cerebrovascular Accident: No Hx Seizures: No Hx Dementia: No - Endocrine History Hx Diabetes: No - Renal History Hx Renal Disorders: No - Liver History Hx Hepatic Disorders: No - Neurological & Psychiatric Hx Hx Neurological and Psychiatric Disorders: No - Cancer History Hx Cancer: No - Chronic Pain History Chronic Pain: No ANE Review of Systems Review of Systems: ANE Patient History - Allergies Allergies/Adverse Reactions: gluten Allergy (Verified 02/16/16 12:41) Penicillins Allergy (Verified 04/12/17 10:54) - Home Medications Home Medications: Apixaban [Eliquis] 5 mg PO BID 02/16/16 [Last Taken 04/17/17 21:00] Levothyroxine [Synthroid 100 mcg (*)] 100 mcg PO DAILY06 02/16/16 [Last Taken ] Vit A/Vit C/Vit E/Zinc/Copper [Preservision Areds Softgel] 1 each PO BID [Last Taken 05/01/16] Herbals/Supplements -Info Only 1 each PO DAILY 04/19/17 [Last Taken Unknown] Metoprolol Tartrate [Lopressor 25 mg (*)] 25 mg PO BID 04/19/17 [Last Taken 21:00] - Smoking Hx Smoking Status: Former smoker ANE Labs/Vital Signs - Labs Result Diagrams: 05/22/17 13:35 - Vital Signs Height: 183 cm Weight: 65.3 kg ANE Physical Exam - Airway Neck exam: FROM Mallampati Score: Class 2 Mouth exam: normal dental/mouth exam - Pulmonary Pulmonary: clear to auscultation - Cardiovascular Cardiovascular: irregularly irregular - ASA Status ASA Status: II ANE Anesthesia Plan Anesthesia Plan: MAC
--- NOTE | 2017-05-23 11:39 | ECHO ---
[email or web address] [address] [address] Main: [phone] Fax: Transesophageal Echocardiography Name: EVERARDO DÍAZ MR#: [id number] Study Date: 05/22/2017 Study Time: 02:13 PM Date of : 1945 Age: 71 year(s) Height: ( ) Weight: ( ) BSA: Gender: Male Examination: VON Indication: Atrial Fibrillation Image Quality: Contrast: Requested by: Josh Nava Heart Rate: Rhythm: BP: 113 mmHg/86 mmHg Procedure Staff Collar Packer: Alma Rosa Alvarez Reading Physician: Josh Nava Requesting Provider: VON Exam Details Conclusions: No thrombus in left atrium. No thrombus in left appendage. Moderate to severe mitral regurgitation. The aortic valve is tri-leaflet. There is no aortic valve regurgitation. Measurements: Chambers Valvular Assessment AV/MV Valvular Assessment TV/PV Normal Normal Normal Name Value Range Name Value Range Name Value Range Additional Measurements: Findings: Left Atrium: No thrombus in left atrium. Left Atrial Appendage: No thrombus in left appendage. Mitral Valve: Moderate to severe mitral regurgitation. There is bileaflet mitral valve prolapse. Aortic Valve: The aortic valve is tri-leaflet. There is no aortic valve regurgitation. Patient: EVERARDO DÍAZ Study Date: 05/22/2017 Page 1 of 2 02:13 PM Pulmonic Valve: There is no pulmonic regurgitation seen. l1n (No Signature Object) Patient: EVERARDO DÍAZ Study Date: 05/22/2017 Page 2 of 2 02:13 PM [id number]
== END 2017-05-22 16:30 | disposition home or self-care (01) ==
LOC: FCATH 12:44
PROVIDERS: ATTEND Internal Medicine Cardiovascular Disease
PROC: 5A2204Z Restoration of Cardiac Rhythm, Single (ICD-10-PCS; principal; 2017-05-22)
PROC: B245ZZ4 Ultrasonography of Left Heart, Transesophageal (ICD-10-PCS; principal; 2017-05-22)
DX: I48.91 Unspecified atrial fibrillation (principal); I34.0 Nonrheumatic mitral (valve) insufficiency; I34.1 Nonrheumatic mitral (valve) prolapse; E03.9 Hypothyroidism, unspecified; Z88.0 Allergy status to penicillin; Z87.891 Personal history of nicotine dependence
CPT/HCPCS: J0461; J2704

== ENCOUNTER → 2017-08-20 | Outpatient (CLI) | payer OTHER | LOC: BHFA 14:00 | PROVIDERS: ATTEND Internal Medicine | DX: I34.0 Nonrheumatic mitral (valve) insufficiency (principal) ==

== ENCOUNTER 2017-09-17 06:55 | Observation (INO) | payer OTHER, MEDICARE ==
--- NOTE | 2017-09-17 07:14 | EDPHY ---
H & P Stated Complaint: [facility] fall Time Seen by Provider: 09/17/17 07:14 - Medical/Surgical History Hx Asthma: No Hx Chronic Respiratory Disease: No Hx Diabetes: No Hx Cardiac Disease: No Hx Renal Disease: No Hx Cirrhosis: No Hx Alcoholism: No Hx HIV/AIDS: No Hx Splenectomy or Spleen Trauma: No Other PMH: afib, thyroid - Social History Smoking Status: Former smoker Constitutional: Initial Vital Signs Temperature (C) 36.4 C 09/17/17 07:02 Heart Rate 87 09/17/17 07:02 Respiratory Rate 18 09/17/17 07:02 Blood Pressure 129/90 H 09/17/17 07:02 O2 Sat (%) 97 09/17/17 07:02 O2 Delivery Mode Room Air Allergies/Adverse Reactions: gluten Allergy (Verified 09/17/17 07:11) Penicillins Allergy (Verified 09/17/17 07:11) Home Medications: Medication Instructions Recorded Apixaban [Eliquis] 5 mg PO BID 02/16/16 Levothyroxine [Synthroid 100 mcg 100 mcg PO DAILY06 02/16/16 (*)] Metoprolol Tartrate [Lopressor 25 25 mg PO BID 04/19/17 mg (*)] Omeprazole 20 mg PO DAILY 05/22/17 Preservision Areds Tablet 1 tab PO BID 05/22/17 Medical Decision Making - Diagnostics Imaging: Discussed imaging studies w/ casino enforcement agent Radiologist, I viewed and interpreted images myself ED Course/Re-evaluation: CHIEF COMPLAINT: Fall HISTORY OF PRESENT ILLNESS: The patient is an anticoagulated 72 y/o male with atrial fibrillation and 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 He describes a mechanical trip and fall related to his baseline gait instability. He thinks he stopped the Eliquis two days ago since he has not been in atrial fibrillation following his most recent cardioversion. He complains of a contusion and pain to his right lower jaw and mild pain in his hip. He has been able to walk at baseline since the fall. No new weakness, paresthesias, chest pain, dyspnea, abdominal pain, or other injuries. REVIEW OF SYSTEMS: A 10 point review of systems was performed and is negative with the exception of the elements mentioned in the history of present illness. PHYSICAL EXAM: HR, BP, O2 Sat, RR. Temp noted General Appearance: Alert, well hydrated, appropriate, and non-toxic appearing. Head: Atraumatic without scalp tenderness or obvious injury Eyes: Pupils equal, round, reactive to light and accommodation, EOMI, no trauma , no injection. Nose: Atraumatic, no rhinorrhea, clear. Throat: Mucus membranes moist. Neck: Supple, nontender, no lymphadenopathy. Contusion to right mandible. Respiratory: No retractions, no distress, no wheezes, and no accessory muscle use. Lungs are clear to auscultation bilaterally. Cardiovascular: Regular rate and rhythm, no murmurs, rubs, or gallops. Good capillary refill all extremities. Gastrointestinal: Abdomen is soft, nontender, non-distended, no masses, no rebound, no guarding, no peritoneal signs. Musculoskeletal: Normal active ROM of all extremities, atraumatic. Neurological: Alert, appropriate, and interactive. Cerebellar dysfunction with abnormal gait and speech, at baseline per . Skin: No rashes, good turgor, no nodules on palpation. Past medical history: Corticobasal degeneration, gait instability, atrial fibrillation with prior cardioversions and ablation 2016 - Eliquis, pulmonary hypertension, mitral valve prolapse, hypothyroidism, tricuspid regurgitation, obstructive sleep apnea, macular degeneration Past surgical history: Noncontributory Family history: Noncontributory Social history: Former smoker. Rare alcohol use. at bedside. Prior medical records reviewed including cardiology admission 04/19/17 and . DIAGNOSTICS/PROCEDURES/CRITICAL CARE TIME: Maxillofacial CT: negative Head CT: acute intraparenchymal right parietal bleed, subacute subdural Critical care time spent by , Dr. Roberto, exclusively with this patient was 35 minutes, exclusive of PA time and exclusive of procedures. The organ system at risk was brain. Time spent in assessment and serial assessments of patient, discussion with patient and family, consideration of interventions, review of CT scans, and consultation with neurosurgery. DIFFERENTIAL DIAGNOSIS: The differential diagnosis for the patient's head injury included but was not limited to concussion, skull fracture, intra- parenchymal contusion, subarachnoid, subdural and epidural hematoma. MEDICAL DECISION MAKING: This is an anticoagulated 72 y/o male who presents with right jaw pain and swelling secondary to an unwitnessed fall this morning. His neurologic exam is at baseline per . No acute focal deficits. Plan for IV, labs, and head and maxillofacial CT. Consulted with Dr. Gerry Alicea, neurosurgery. He will review imaging, assess patient in the ED, and consult during admission. Reassessed patient and discussed findings with him and his and recommended admission, which they agree to. Spoke with hospitalist service. Dr. Herrmann accepts admission. Departure - Departure Disposition: [facility] Inpatient Acute Clinical Impression: Intracranial hemorrhage Condition: Fair Referrals: Patient,NotPresent [Primary Care Provider] - As per Instructions Report Scribed for: Kiran Roberto Report Scribed by: Kirsten Schrader Date of Report: 09/17/17 Time of Report: 07:35
[2017-09-17] MEDS ORDERED: ONDANSETRON 4 MG/2 ML VIAL IVP PRN (08:58)
[2017-09-17] MEDS ORDERED: ONDANSETRON DISINTEGRATING 4 MG TAB PO PRN (08:58)
[2017-09-17] MEDS ORDERED: ACETAMINOPHEN 325 MG TAB PO PRN (08:58)
[2017-09-17] MEDS ORDERED: hydrALAZINE 20 MG/ML VIAL IVP PRN (09:11)
--- NOTE | 2017-09-17 09:16 | NEUSURGPN ---
Assessment/Plan: Neurosurgery Consult- Full consult dictated - 72 yo male with hx of Afib and anticoagulation with Eliquis (stopped reportedly 2 days ago), with fall this morning and 2 weeks prior. Has right sided small subarachnoid hemorrhage and small hypodensity chronic subdural hematoma. No midline shift. Neuro exam at patient's baseline. -Admit to Med/Surg per Dr. Alicea -Q4 hour neuro checks -Repeat Head CT in am -May advance diet as able -SBP goal 90-150 -PT/OT/FIELD TECH -Patient seen and evaluated by Dr. Alicea at 0845 in the ER -Call NS with any questions or concerns Pallavi Johnson PA-C [phone] [facility] - Physician Discussed Patient with : Nixon Patient Seen by : [facility] Physical Exam - Vitals, I&O, Labs Vital Signs Temp Pulse Resp BP Pulse Ox 36.4 C 82 18 126/87 H 98 09/17/17 07:02 09/17/17 08:02 09/17/17 08:02 09/17/17 08:02 09/17/17 08:02 ICD10 Worksheet Patient Problems: Problems Problem Status Onset Intracranial hemorrhage Acute Afib Acute
[2017-09-17 09:48] LABS: INR 1.06 (0.83-1.16)
--- NOTE | 2017-09-17 09:53 | GCON ---
[f rep st] CONSULTATION NEUROSURGERY CONSULTATION. DATE OF CONSULTATION: 09/17/2017 This patient was seen and evaluated by Neurosurgical Services in the emergency department at approximately 8:45 a.m. CHIEF COMPLAINT: Fall and traumatic subarachnoid hemorrhage. HISTORY OF PRESENT ILLNESS: This is a 72-year-old male with a history of atrial fibrillation and prior balance issues, who fell about 2 weeks ago and then fell again this morning. The patient was anticoagulated on Eliquis until about 2 days ago. The patient arrived via EMS with his with jaw pain after an unwitnessed fall. He described a mechanical trip and fall related to his gait instability on his way to the bathroom. The patient had a recent cardioversion and has since been off his atrial fibrillation medication. The patient currently complains of jaw pain, but denies any headaches, nausea, vomiting, other new or worsening problems with his speech, or weakness in his arms or legs. REVIEW OF SYSTEMS: A 10-point review of systems was performed. All pertinent positives and negatives were reviewed and are as stated in HPI. PAST MEDICAL HISTORY: Consists of cortical basal degeneration, gait instability , AFib with prior cardioversions and ablations. Also has a history of obstructive sleep apnea, macular degeneration, tricuspid regurgitation, hypothyroidism, mitral valve prolapse. PAST SURGICAL HISTORY: Hemorrhoid repair. He also has past cardioversions and ablation x2. SOCIAL HISTORY: Patient is a former smoker. He drinks approximately 1 glass of wine per day. He lives in [place] and has his by his bedside today. FAMILY HISTORY: Reviewed and is noncontributory. HOME MEDICATIONS: Include Synthroid 100 mcg p.o. daily. Also, Eliquis, but this was stopped 2 days ago. ALLERGIES: Patient has allergy to gluten and penicillins. OBJECTIVE: VITAL SIGNS: Blood pressure 126/87, heart rate 82, respiratory rate 18, O2 sat is 98% on room air. CONSTITUTIONAL: Patient is alert and oriented x3. He does have some stuttering of his speech, which is per his normal for him. HEENT: Head is normocephalic, atraumatic. Eyes: Pupils are equal and react to light and accommodation. Extraocular muscles are intact. Ears: Hearing is grossly intact. Nose: There is no trauma to the nose. NECK : Patient is nontender to palpation of the mid cervical spine and there is full range of motion. NEURO: Cranial nerves 2-12 are grossly intact. Tongue protrusion is midline. Palate rises symmetrically. Facial sensation is intact. Face is symmetrical. Accessory muscles are 5/5 and equal in strength. MOTOR: Bilateral upper extremities and lower extremities are 5/5 and equal in strength in all muscle groups including deltoids, biceps, triceps, wrist extensors, flexors, interossei and admissions coordinator, and quadriceps, hamstrings, dorsiflexion, plantar flexion, and EHL. SENSATION: Intact bilaterally over the upper and lower extremities in a normal dermatomal distribution. There is no pronator drift. EXTREMITIES: Patient does have some redness and swelling and 1+ pitting edema in his lower extremities that the states is normal for him. ABDOMEN: Patient has no guarding. RESPIRATORY: Patient has normal work of breathing. LABORATORY DATA: There are no current lab results to review. DIAGNOSTIC IMAGING REVIEW: 1. Patient had a head CT without contrast that does show: a. Cortical and some adjacent subarachnoid hemorrhage in the right posterior frontal to anterior parietal lobe along the posterior aspect of the sylvian fissure. b. Small hypodense chronic subdural collection over the right posterior frontal and anterior parietal lobe superiorly with small amount of increased density along the inferior margin compatible with superimposed acute subdural hemorrhage without evidence of mass effect or compression upon the cerebral parenchyma. c. No evidence of calvarial or facial bone fracture. 2. CT of the facial bones was performed and shows CT of the facial bones are intact without evidence of any fracture. There is no significant soft tissue swelling seen. ASSESSMENT AND PLAN: This is a 72-year-old male with history of atrial fibrillation and cortical basal degeneration which leads him to have gait instability, who has had several falls, one this morning, and a larger one approximately 2 weeks ago, who was brought into the [facility] emergency room for jaw pain. He was ultimately found to have a small right- sided posterior frontal to anterior parietal lobe subarachnoid hemorrhage along with a hypodense chronic subdural collection over the right posterior frontal anterior parietal lobe superiorly. There is no evidence of midline shift and the patient is currently at his baseline. The patient currently has been off his Eliquis for reported 2 days and we will keep him off this medication at this time. The patient will be admitted to the medical-surgical floor for neurological checks, and we will repeat his head CT tomorrow morning in order to ensure that this has not gotten any worse. The patient will be admitted to the medicine service due to his multiple medical problems. We appreciate Medicine for taking care of his other medical problems. At this time, we do not see any other neurosurgical intervention needed, but we will watch him and should there be any changes in his neurological exam, please contact Neurosurgery Services immediately. We would like to keep his blood pressure normotensive below 150. We will get a repeat head CT in the morning. Deep vein thrombosis prophylaxis should consist of TEDs, sequential compression devices, but no pharmacological prophylaxis at this time. He may be up as tolerated with assistance. He may resume a normal diet. Any questions or concerns, please contact the neurosurgical team. /[id number]/MODL MTDD
[2017-09-17] MEDS: LEVOTHYROXINE 100 MCG TAB PO SCH (12:08)
--- NOTE | 2017-09-17 15:04 | GHP ---
[f rep st] HISTORY AND PHYSICAL DATE OF ADMISSION: 09/17/2017 CHIEF COMPLAINT: Mechanical fall. HISTORY OF PRESENT ILLNESS: A 72-year-old male, with a history of corticobasal degeneration, gait in stability, and frequent falls, who presents to the emergency department after a fall the morning of p resentation. In the ED, patient is denying any headache. Denies vision changes. Denies nausea, vom iting, subjective fevers or chills. Denies dysuria, hematuria, changes in his bowel habits, melena, hematochezia. PAST MEDICAL HISTORY: 1. Corticobasal degeneration. 2. Atrial fibrillation, on Eliquis anticoagulation. 3. Hypothyroidism. 4. Gait instability, chronic. SOCIAL HISTORY: Negative for tobacco. Patient drinks 1 glass of wine a week. Denies illicit drugs or marijuana. FAMILY HISTORY: Negative for strokes. ADVANCED DIRECTIVES: Patient is full cor, full tube. His would be his medical decision maker. REVIEW OF SYSTEMS: A 10-point review of systems is negative, with the exception of that reported in the HPI. PHYSICAL EXAMINATION: VITAL SIGNS: Blood pressure 121/81, heart rate 75, respiratory rate 18, satti ng 96% on room air, 36.5. GENERAL: This is a very pleasant elderly male lying flat in bed. HEENT: Notable for dry mucous membranes. EYES: Negative for any icterus. CARDIAC: Patient is regular ra te and rhythm. PULMONARY: Clear to auscultation bilaterally. GASTROINTESTINAL: Positive bowel reanna nds. ABDOMEN: Soft and nontender. MUSCULOSKELETAL: Negative for any lower extremity edema. SKIN: Negative for any rashes. NEUROLOGIC: The patient is alert and oriented x3. PSYCHIATRIC: He is p leasant and cooperative on interview and examination. DATA: White count 4.7. Noncontrast CT of the head, which I personally reviewed and interpreted, daily ws a subarachnoid hemorrhage on the right posterior frontal cortical tissue. Radiology comments on t he small hypodense chronic subdural adjacent to the acute subarachnoid hemorrhage. ASSESSMENT AND PLAN: This is a 72-year-old male with a history of corticobasal degeneration and portfolio management marketing nuvia anticoagulation for atrial fibrillation, who presents after a mechanical fall. 1. Acute intracerebral hemorrhage. The patient is neurologically intact, was seen by Neurosurgery, will be admitted for observation and repeat neurologic imaging. We will hold the patient's oral anti coagulants and monitor on 3 [place]. 2. Atrial fibrillation. The patient sounds regular. On my examination, heart rates are controlled. We will monitor on 3 . 3. Hypothyroidism. Will continue his outpatient levothyroxine. Prophylaxis contraindicated in the setting of acute intracerebral hemorrhage. DIET: Regular. DISPOSITION: I expect in less than 2 midnights. If the patient remains stable on repeat neurologic imaging and clears PT/OT, he should be a candidate for disposition home tomorrow. I discussed the ca se with the emergency room physician. Patient will be triaged to the medical-surgical floor for care . /[id number]/MODL
[2017-09-18] MEDS: LEVOTHYROXINE 100 MCG TAB PO SCH (06:04)
--- NOTE | 2017-09-18 09:55 | NEUSURGPN ---
Assessment/Plan: A: 72 yo male with hx of Afib and anticoagulation with Eliquis (stopped reportedly 2 days prior), with fall yesterday and another fall 2 weeks prior. Has right sided small subarachnoid hemorrhage and small hypodensity chronic subdural hematoma. No midline shift. Neuro exam at patient's baseline. Plan: -Admit to Med/Surg per Dr. Alicea -Neuro stable -Q4 hour neuro checks -Repeat Head CT is pending -May advance diet as able -SBP goal 90-150 -PT/OT/SEWER BRICKLAYER -Call NS with any questions or concerns -D/w Dr Alicea Subjective: Pt resting in bed, has mild headache. at bedside. Objective: AAOx3 NAD VSS MAEx4 Motor 5/5 BUE/BLE Follows all commands CN II-XII grossly intact Neuro Check Frequency: Q4 Urinary Catheter in Place: No - Physician Discussed Patient with : [facility] Physical Exam - Vitals, I&O, Labs I and O 09/17/17 09/18/17 09/19/17 05:59 05:59 05:59 Intake Total 2600 Output Total 1700 450 Balance 900 -450 Weight 58.967 kg Intake: Oral (ml) 2600 Output: Urine (ml) 1700 450 Incontinence 450 250 Urinal 1250 200 Other: Intake Quantity Yes Sufficient Number of Voids Incontinence 1 2 Urinal 3 1 Vital Signs Temp Pulse Resp BP Pulse Ox 36.4 C 78 16 121/82 H 93 09/18/17 07:34 09/18/17 07:34 09/18/17 07:34 09/18/17 07:34 09/18/17 07:34 ICD10 Worksheet Patient Problems: Problems Problem Status Onset Intracranial hemorrhage Acute Afib Acute
--- NOTE | 2017-09-18 11:47 | ASMTCMCOM ---
CM Note CM Note Notes: Patient admitted after a fall with a small intracranial hemorrhage. He also has a history of corticobasal degeneration. PT is recommending inpatient rehab, and patient is very interested in this. 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 He lives with his . [facility] inpatient rehab has received the order for a consult and will follow patient. Case Management will follow, as well. Date Signed: 09/18/2017 11:47 AM Electronically Signed By:Neha Gonzáles RN
--- NOTE | 2017-09-18 14:00 | HOSPPROG ---
Hospitalist Progress Note Assessment/Plan: # acute right fronto parietal intraparenchymal hemorrhage- status post fall yesterday- oxygen saturations 95% room air CT head(personally reviewed and interpreted) shows no significant interval change in bleed overnight - holding outpatient Eliquis - neurosurgery consulting - continue neurologic monitoring # cortical basilar degeneration- longstanding history of gait instability and frequent falls Evaluated today by Physical therapy and thought to be a candidate for inpatient rehabilitation - inpatient rehab consult - continue PT OT # atrial fibrillation- continue home medications without anticoagulation # prophylaxis-contraindicated in setting of acute intracerebral hemorrhage # diet regular # disposition-greater than 2 midnights as requires therapy catherine says an inpatient rehabilitation consultation I have discussed the case with case management-we will ask for rehab consultation Subjective: Denies pain Objective: Vital Signs Temp Pulse Resp BP Pulse Ox 36.8 C 84 16 115/83 H 95 09/18/17 12:00 09/18/17 12:00 09/18/17 12:00 09/18/17 12:00 09/18/17 12:00 09/17/17 09/18/17 09/19/17 05:59 05:59 05:59 Intake Total 2600 200 Output Total 1700 450 Balance 900 -250 PT 14.0 SEC (12.0-15.0) 09/17/17 09:20 INR 1.06 (0.83-1.16) 09/17/17 09:20 - Physical Exam Constitutional: chronically ill appearing Eyes: anicteric sclera Ears, Nose, Mouth, Throat: moist mucous membranes Cardiovascular: regular rate and rhythym Respiratory: no respiratory distress Gastrointestinal: normoactive bowel sounds Genitourinary: no bladder fullness Skin: warm Musculoskeletal: No asymmetric calves Neurologic: AAOx3 Psychiatric: interacting appropriately Lymph, Heme, Immunologic: no cervical LAD ICD10 Worksheet Patient Problems: Problems Problem Status Onset Intracranial hemorrhage Acute Afib Acute
[2017-09-18 23:06] VITALS: RESP 16
[2017-09-19] MEDS: LEVOTHYROXINE 100 MCG TAB PO SCH (06:22)
--- NOTE | 2017-09-19 11:04 | PDIAF ---
- Diagnosis Diagnosis: intracranial hemorrhage Code Status: Full Code - Medication Management Discharge Medications: Medications to Continue on Transfer Levothyroxine [Synthroid 100 mcg (*)] 100 mcg PO DAILY06 02/16/16 [Last Taken ] Discharge Medications: Refer to the Discharge Home Medication list for PRN reason. - Orders Services needed: Physical Therapy, Occupational Therapy, Speech Language Pathologist Diet Recommendation: no restrictions on diet - Follow Up Care Current Providers and Referrals: Patient,NotPresent [Unknown] - As per Instructions
[2017-09-19 11:44] VITALS: BP 104/82; PULSE 96; TEMP 97.3; O2SAT 96
--- NOTE | 2017-09-19 14:08 | GDS ---
[f rep st] DISCHARGE SUMMARY DISCHARGE DIAGNOSES: 1. Small right-sided posterior frontal to anterior parietal lobe subarachnoid hemorrhage. 2. Chronic subdural right posterior frontal anterior parietal lobe. 3. Atrial fibrillation. 4. Cortical base degeneration with chronic gait instability. HISTORY: The patient is a 72-year-old male with a history of cortical basal degeneration and chronic gait instability with frequent falls, who presents after a mechanical fall. He was found to have an intracerebral hemorrhage. He was seen by Neurosurgery. Repeat CT scan was stable. We will continu e with conservative management. The patient was recently on Eliquis for atrial fibrillation, which i s being held. Inpatient rehabilitation was recommended, and he is transferring there today. DISCHARGE MEDICATIONS: Please see computer record for full detailed list. There are no new medicati ons given at the time of discharge. The patient will continue to hold Eliquis. Greater than 30 minutes' time was spent arranging this discharge. Patient seen and examined by me on the day of discharge. /[id number]/MODL
--- NOTE | 2017-09-19 14:51 | ASMTCMCOM ---
CM Note CM Note Notes: Pt medically stable for d/c to [facility] inpatient rehab. Orders to be obtained via [employer]. RN Nevaeh to call report. Pt wants to transport and plan to leave approx 1400. Date Signed: 09/19/2017 02:51 PM Electronically Signed By:RUDDY [place]
--- NOTE | 2017-09-19 14:52 | ASDISCHSUM ---
Discharge Information Plan Status:Inpatient Rehab Medically Cleared to Leave: Discharge Date:09/19/2017 02:39 PM CM D/C Disposition:[facility] IP ADT D/C Disposition:[facility] IP Projected Discharge Date:09/19/2017 11:00 AM Transportation at D/C:Family Discharge Delay Reason: Follow-Up Date:09/19/2017 11:00 AM Discharge Slot: Final Diagnosis: Placement Information Referral Type:Rehabilitation Hospital Referral ID:[id number] Provider Name:[facility] Address 1:[address] Phone Number: Address 2: Fax Number: [place] Selection Factors: State:[place] Patient Contact Information Contact Name:DIONNE Relationship: Address:[address] [place] [address] City:[place] Alternate Phone: State/Zip Code:[place] [address] Email: Financial Information Financial Class:Medicare Primary Plan Desc:MEDICARE OUTPATIENT Primary Plan Number:[id number] Secondary Plan Desc:[employer]/MDR SUPPLEMENT Secondary Plan Number:[id number] Assessment Information [facility] CM Progress Note CM Note CM Note Notes: Patient admitted after a fall with a small intracranial hemorrhage. He also has a history of corticobasal degeneration. PT is recommending inpatient rehab, and patient is very interested in this. 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 He lives with his . [facility] inpatient rehab has received the order for a consult and will follow patient. Case Management will follow, as well. Date Signed: 09/18/2017 11:47 AM Electronically Signed By:Neha Gonzáles RN [facility] CM Progress Note CM Note CM Note Notes: Pt medically stable for d/c to [facility] inpatient rehab. Orders to be obtained via [employer]. CARSON Herring to call report. Pt wants to transport and plan to leave approx 1400. Date Signed: 09/19/2017 02:51 PM Electronically Signed By:RUDDY [place] Intervention Information Intervention Type:*GEORGE-Signed Date of Service:09/18/2017 10:37 AM Patient Type:Observation Staff Member:Ashlie Jain Hours: Discipline: Severity: Comment:
== END 2017-09-19 14:39 ==
LOC: EDUNIT# → F3N 10:23
PROVIDERS: ADMIT Hospitalist; ATTEND Hospitalist
DX: S06.6X0A Traumatic subarachnoid hemorrhage without loss of consciousness, initial encounter (principal); G31.85 Corticobasal degeneration; R26.89 Other abnormalities of gait and mobility; I48.91 Unspecified atrial fibrillation; I34.1 Nonrheumatic mitral (valve) prolapse; E03.9 Hypothyroidism, unspecified; W19.XXXA Unspecified fall, initial encounter; Y93.01 Activity, walking, marching and hiking; Y92.091 Bathroom in other non-institutional residence as the place of occurrence of the external cause; Z79.01 Long term (current) use of anticoagulants; Z87.891 Personal history of nicotine dependence
CPT/HCPCS: 70450; 70486; 92523; 97110; 97116; 97162; 97167; 97530; 97535; 99291; G0378; G8978; G8979; G8987; G8988; G9165; G9166

== ENCOUNTER 2017-09-19 15:05 | Inpatient (IN) | payer OTHER, MEDICARE ==
--- NOTE | 2017-09-19 18:44 | GHP ---
[f rep st] HISTORY AND PHYSICAL POST ADMISSION PHYSICIAN EVALUATION AND REHABILITATION TREATMENT PLAN DATE OF ADMISSION: 09/19/2017 DATE OF EVALUATION: 09/19/2017. TIME OF EVALUATION: 1735. REFERRING FACILITY: [facility]. REFERRING PHYSICIAN: Anne Herrmann MD IMPAIRMENT GROUP: [id number]. DATE OF ONSET: 09/17/2017. CONSULTING PHYSICIANS: He was seen in consultation by the Neurosurgical service , Dr. Alicea. REHABILITATION DIAGNOSIS: Subarachnoid hemorrhage and subdural hemorrhage status post fall, in a patient with underlying corticobasal degeneration. ETIOLOGIC DIAGNOSIS: Traumatic, closed injury. HISTORY OF PRESENT ILLNESS: This patient has a history of corticobasal degeneration with symptoms for several years and diagnosis established for about 2-1/2 months, and frequent falls. He also has a history of atrial fibrillation, for which he was treated with apixaban. He was admitted to [facility] on 09/17/2017 after a mechanical fall. A head CT showed subarachnoid hemorrhage in the right posterior frontal cortical tissue and anterior parietal lobe along the sylvian fissure, with a small chronic subdural hemorrhage adjacent to the subarachnoid hemorrhage. Apixaban was discontinued. He was soon medically stabilized and appropriate for inpatient rehabilitation. OTHER STUDIES AND LABS DURING HIS STAY: Hematology revealed mild anemia with a hemoglobin of 13.3 and a hematocrit of 38.5 on 09/17/2017. Coagulation studies revealed normal PT and INR. Serum chemistry revealed hyponatremia with a sodium of 133 on 09/17/2017. BUN was low at 5 and creatinine was low at 0.5. TSH was normal. He was followed with serial head CTs, which showed no significant change after 24 hours. PRECAUTIONS: He is a fall risk. ACTIVE COMORBIDITIES: He has no active tier 1, tier 2 or tier 3 comorbidities. PAST MEDICAL HISTORY: 1. Corticobasal degeneration. 2. Atrial fibrillation. 3. Hypothyroidism. 4. Multiple falls. PAST SURGICAL HISTORY: He has had radiofrequency ablation for the atrial fibrillation. PREHOSPITAL MEDICATIONS: 1. Apixaban 5 mg p.o. twice daily. 2. Levothyroxine 100 mcg p.o. daily. 3. Metoprolol 25 mg p.o. twice daily. 4. Omeprazole 20 mg p.o. daily. 5. PreserVision multivitamin 1 p.o. twice daily. ALLERGIES: Listed to gluten and penicillin. PSYCHOSOCIAL HISTORY: He is , lives with his . He is a retired psychologist. He is a former smoker. They live in a 3 level house. FAMILY HISTORY: Noncontributory. REVIEW OF SYSTEMS: He denies pain. He denies vision changes. His reports that he has right-sided weakness. He says he has some numbness bilaterally in his feet. He denies difficulty swallowing. He denies headache. He denies fevers, chills, cough, dyspnea. He has urinary incontinence and he has very frequent urination. He denies nausea, vomiting, constipation, or diarrhea. Otherwise, a 10-point review of systems is negative. PHYSICAL EXAM: VITAL SIGNS: Blood pressure is 90/68, heart rate is 89, respiratory rate is 16, oxygen saturation is 98% on room air. His weight is 60.4 kg for a body mass index of 18.1. GENERAL: This is a well-nourished, well -developed man, sitting up in bed, dressed in street clothes, cooperative, and in no acute distress. HEENT: Extraocular movements are intact, though he loses track on vertical saccades. Pupils are equal, round, and reactive to light. Mucous membranes are moist. Dentition is in good condition. He has a moderately crowded airway, Mallampati class 3. NECK: Supple. HEART: There is a regular rate and rhythm, with no murmurs, rubs, or gallops. LUNGS: Clear to auscultation bilaterally. ABDOMEN: Soft, nontender, nondistended with normoactive bowel sounds and no hepatosplenomegaly. EXTREMITIES: There is no cyanosis, clubbing, or edema. Radial and dorsalis pedis pulses are 2+ bilaterally. NEUROLOGIC: He is alert. Orientation was not tested. He seems to know his general situation and location. Cranial nerves 2-12 are grossly intact, with normal eye movements. Normal sensation in his face. Normal palatal elevation. Symmetric facial movements. Normal strength with shoulder shrug. Motor is 5/5 overall. Right-sided weakness was not noted on exam. Sensation is intact to light touch. Deep tendon reflexes are 2+ bilaterally at the biceps, patellar, and Achilles tendons. He has motor apraxia and was unable to follow requests for finger-nose testing or rapid alternating movements. He has mildly increased tone on the right upper extremity. There is no tremor noted. He is hypophonic and has impaired prosody. At times, he has stuttering. CURRENT LEVEL OF FUNCTION PER THE PRE-ADMISSION SCREEN: Regarding diet, feeding and swallowing, he was on a regular diet. He was requiring assistance for bathing and total assistance for dressing. Toileting was accomplished with standby assist for clothing management and maximal assist and voice cues for transferring. Bladder was noted to be incontinent. Bowel was continent. For bed mobility, he required minimal assist. Transfers required contact guard to minimal assist with cues to clear objects on the right. He used a front- wheeled walker. Standing balance required minimal assist. Endurance was fair. He ambulated 300 feet with a front-wheeled walker and minimal assist and voice cues for long strides and to reach with his heels. He was noted to have slight ataxia, right greater than left, during the swing phase. Regarding communication, he had moderate deficits in communication and a flat affect. Regarding cognition, he had moderate deficits in attention. On today's exam, he seems to be improved in terms of his bed mobility. Otherwise, there are no significant differences from the pre-admission. 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 He has had multiple falls. He also has atrial fibrillation and though he has had ablation, he continued on apixaban. And in his most recent fall, he suffered a subarachnoid and intraparenchymal hemorrhage of the posterior right frontal lobe and the anterior parietal lobe along the sylvian fissure. Also noted was a chronic subdural hematoma in a similar distribution, along with a small area of acute subdural hematoma. His apixaban has been held. Intracranial findings on serial CT scans were stable over 1 day, and he was medically stable and appropriate for inpatient rehabilitation. His goals are to complete a rehabilitation stay and then return home with his family and supportive services. For a safe level of discharge, it is anticipated that he will achieve independence with eating and grooming, and modified independence for bed mobility, dressing and transfers. He may require close contact guard for ambulation with a front-wheeled walker. He will need to be able to demonstrate the ability to negotiate the environment, clearing objects on the right. He will need to have sufficient cognition to be able to be left alone for short periods of time if he is safe with ambulation. He will need to demonstrate insight into deficits and strategies to be able to mobilize and care for himself safely. He will have therapy with physical therapy, occupational therapy, and speech and language pathology for 60 minutes per day for each discipline on 5-7 days of the week. His expected duration of stay is 10-14 days. It is anticipated that upon discharge he will continue to benefit from home health services, including nursing, speech and language pathology, a nurse's aide, occupational therapy, and physical therapy. PLAN: 1. Intraparenchymal and subarachnoid hemorrhage with chronic subdural hemorrhage and reduced mobility and ability to carry out activities of daily living. 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 PT and OT to optimize mobility and activities of daily living to the independent to modified independent level. Goals will include ability to safely climb and descend stairs. 2. 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 This condition often presents with early cognitive impairment as well. He will have assessment and treatment per Speech and Language Pathology. 3. Hyponatremia. 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 Check BMP in the morning. 4. Hypothyroidism. Continue levothyroxine. 5. Atrial fibrillation. Apixaban is contraindicated in the setting of recent intracranial hemorrhage. He is not tachycardic at present and he has a regular rhythm. He will be monitored for tachycardia and will consider rate control medications if they are necessary. Currently, his blood pressure is on the low side, so a beta emmanuel or calcium channel emmanuel would be contraindicated. 6. Gluten allergy. He will have a dietary consult to optimize his nutrition. 7. Prophylaxis. Anticoagulation is contraindicated in the short term. The issue will be discussed with Neurosurgery regarding prophylaxis with subcutaneous enoxaparin, if his mobility is limited enough to place him at an elevated risk for DVT. Followup: Plan will be discussed with Neurosurgery regarding subsequent head CTs and next visit with Neurosurgery. His primary care provider is Dr. Warren Waldron. His neurologist is Dr. Geraldo Alatorre, and he has seen Dr. Melissa Hartmann at the [facility] in [place]. /[id number]/MODL MTDD
--- NOTE | 2017-09-19 19:05 | PDOREHIP ---
Admission [facility] - Admission - 3 Day Assessment Period Admission Date/Day 1: 09/19/17 Day 2: 09/20/17 Day 3: 09/21/17 - Active Diagnoses Comorbidities and Co-existing Conditions at Admission: [id number]. None of the Above - Skin Conditions Unhealed Pressure Ulcer (1 or more/Stage 1 or >)-Admission: 0. No
[2017-09-20] MEDS: LEVOTHYROXINE 100 MCG TAB PO SCH (05:36)
[2017-09-20 08:06] LABS: PLATELET COUNT 231 10^3/uL (150-400)
--- NOTE | 2017-09-20 12:49 | SOAPPROG ---
SOAP Progress Note Assessment/Plan: Assessment: * Intraparenchymal and subarachnoid hemorrhage with chronic subdural hemorrhage and reduced mobility and ability to carry out activities of daily living. 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 * PT and OT to optimize mobility and activities of daily living to the independent to modified independent level. Goals will include ability to safely climb and descend stairs. 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 This condition often presents with early cognitive impairment as well. He will have assessment and treatment per Speech and Language Pathology. * Hyponatremia. Na 130 on 09/20/2017, down from 133 on 09/17/2017. Urine osmolalities less than serum osmolalities, not consistent with SIADH. Start oral sodium chloride replacement. Recheck BMP in a.m. and a.m. cortisol. TSH was normal on 09/17/2017. * Hypothyroidism. Continue levothyroxine. * Atrial fibrillation. Apixaban is contraindicated in the setting of recent intracranial hemorrhage. He is not tachycardic at present and he has a regular rhythm. He will be monitored for tachycardia and will consider rate control medications if they are necessary. * Gluten allergy. He will have a dietary consult to optimize his nutrition. * Prophylaxis. Anticoagulation is contraindicated in the short term. The issue will be discussed with Neurosurgery regarding prophylaxis with subcutaneous enoxaparin, if his mobility is limited enough to place him at an elevated risk for DVT. Followup: Plan will be discussed with Neurosurgery regarding subsequent head CTs and next visit with Neurosurgery. His primary care provider is Dr. Warren Waldron. His neurologist is Dr. Geraldo Alatorre, and he has seen Dr. Melissa Hartmann at the [facility] in [place]. 09/20/17 16:09 Subjective: No complaints today. Apologizes for being "crabby"yesterday. Slept well. No fevers or chills, no cough or dyspnea. Objective: Vital Signs Temp Pulse Resp BP Pulse Ox 36.3 C 85 16 126/84 H 94 09/20/17 07:56 09/20/17 07:56 09/20/17 07:56 09/20/17 07:56 09/20/17 07:56 Laboratory Results 09/20/17 06:00 09/20/17 06:00 09/19/17 09/20/17 09/21/17 05:59 05:59 05:59 Intake Total 120 118 Output Total 600 Balance -480 118 Physical Exam - Physical Exam General Appearance: WD/WN, alert, no apparent distress Respiratory: normal breath sounds, No crackles, No rhonchi, No wheezing Cardiac/Chest: regular rate, rhythm, No edema, No diastolic murmur, No systolic murmur Skin: normal color, warm/dry Neuro/Psych: alert, normal mood/affect, speech abnormalities ICD10 Worksheet Patient Problems: Problems Problem Status Onset Afib Acute Intracranial hemorrhage Acute
[2017-09-20] MEDS: SODIUM CHLORIDE 1,000 MG TAB PO SCH (17:46)
[2017-09-21] MEDS: LEVOTHYROXINE 100 MCG TAB PO SCH (05:07)
[2017-09-21] MEDS: SODIUM CHLORIDE 1,000 MG TAB PO SCH ×3 (08:34→17:58)
--- NOTE | 2017-09-21 15:40 | SOAPPROG ---
SOAP Progress Note Assessment/Plan: Assessment: * Intraparenchymal and subarachnoid hemorrhage with chronic subdural hemorrhage and reduced mobility and ability to carry out activities of daily living. 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 * Initial functional independence measure 72. Has right ignoral and a right floating hand. Decreased motor planning. Minimal assist for mobility to avoid colliding on right. Ambulating 150 ft or more; unclear if trekking pole verses front wheeled walker is helpful given motor apraxia. Moderate assistance for stairs and has freezing episodes while descending. Upper and lower body doing require minimal assistance. If it is not an automatic movement he can get stuck. * Continue PT and OT to optimize mobility and activities of daily living to the independent to modified independent level. Goals will include ability to safely climb and descend stairs. 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 * Mild to moderate deficits in problem solving, reasoning, attention, executive function. Decreased reading comprehension. * Continue Speech and Language Pathology. * Hyponatremia. Na 130 on 09/20/2017, down from 133 on 09/17/2017. Urine osmolalities less than serum osmolalities, not consistent with SIADH. * TSH and fasting cortisol normal, 09/21/2017. * Started oral sodium chloride replacement. Sodium improved from 130 to 132 on 09/21/2017. * Recheck BMP in a.m.. * Hypothyroidism. Continue levothyroxine. * Atrial fibrillation. Apixaban is contraindicated in the setting of recent intracranial hemorrhage. He is not tachycardic at present and he has a regular rhythm. He will be monitored for tachycardia and will consider rate control medications if they are necessary. * Gustavo 2 Vasc score is 1, corresponding to a 0.9% annual risk of stroke/TIA/ thromboembolism. Consider initiating anti-platelet agent. Unclear that he would need to resume anticoagulation. * Constipation. Started herbal preparation per 's preference; contains cascara. * Consider MiraLax if no response. * Gluten allergy. He will have a dietary consult to optimize his nutrition. * Prophylaxis. Anticoagulation is contraindicated in the short term. Mobility is improving. Will not initiate anticoagulation at present. Continue to monitor regarding mobility. Attended staffing, 15 min. Discussed with case management, dietitian, nursing, PT, OT, SALES DESIGNER. He and his are in the process of moving to [place] and their home in [place] is on the market. They were planning to occupy the new home in [place] in November. May need interim discharge disposition. Tentative discharge date set for 10/05/2017. Followup: Plan will be discussed with Neurosurgery regarding subsequent head CTs and next visit with Neurosurgery. His primary care provider is Dr. Warren Waldron. His neurologist is Dr. Geraldo Alatorre, and he has seen Dr. Melissa Hartmann at the [facility] in [place]. 09/21/17 15:28 Subjective: Has not had a bowel movement today. Otherwise without complaints. Sleeping well. Not in pain. No cough or dyspnea. Participating in therapy. Objective: Vital Signs Temp Pulse Resp BP Pulse Ox 37.2 C 84 16 99/74 L 97 09/21/17 05:55 09/21/17 05:55 09/21/17 05:55 09/21/17 05:55 09/21/17 05:55 Laboratory Results 09/20/17 06:00 09/21/17 06:00 09/20/17 09/21/17 09/22/17 05:59 05:59 05:59 Intake Total 120 643 150 Output Total 600 850 425 [facility] -480 -207 -275 Physical Exam - Physical Exam General Appearance: WD/WN, alert, no apparent distress Respiratory: normal breath sounds, No crackles, No rhonchi, No wheezing Cardiac/Chest: regular rate, rhythm, No diastolic murmur, No systolic murmur Abdomen: normal bowel sounds, non-tender, soft, No distended Skin: normal color, warm/dry Neuro/Psych: alert, normal mood/affect, oriented x 3 (Hypophonic, ataxic.) ICD10 Worksheet Patient Problems: Problems Problem Status Onset Afib Acute Intracranial hemorrhage Acute
[2017-09-21] MEDS ORDERED: NON-FORMULARY NEW DRUG PO SCH (16:00)
[2017-09-22] MEDS: LEVOTHYROXINE 100 MCG TAB PO SCH (06:17)
[2017-09-22] MEDS: SODIUM CHLORIDE 1,000 MG TAB PO SCH ×3 (08:13→18:25)
--- NOTE | 2017-09-22 12:17 | SOAPPROG ---
SOAP Progress Note Assessment/Plan: Assessment: * Intraparenchymal and subarachnoid hemorrhage with chronic subdural hemorrhage and reduced mobility and ability to carry out activities of daily living. 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 * Initial functional independence measure 72. Has right ignoral and a right floating hand. Decreased motor planning. Minimal assist for mobility to avoid colliding on right. Ambulating 150 ft or more; unclear if trekking pole verses front wheeled walker is helpful given motor apraxia. Moderate assistance for stairs and has freezing episodes while descending. Upper and lower body doing require minimal assistance. If it is not an automatic movement he can get stuck. * Continue PT and OT to optimize mobility and activities of daily living to the independent to modified independent level. Goals will include ability to safely climb and descend stairs. 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 * Mild to moderate deficits in problem solving, reasoning, attention, executive function. Decreased reading comprehension. * Continue Speech and Language Pathology. * Hyponatremia. Na 130 on 09/20/2017, down from 133 on 09/17/2017. Urine osmolalities less than serum osmolalities, not consistent with SIADH. * TSH and fasting cortisol normal, 09/21/2017. * Started oral sodium chloride replacement. Sodium improved from 130 to 132 on 09/21/2017. * Sodium a little better today 132 * Admits to drinking significant amounts of water - will have him decrease his water intake some * Recheck sodium 09/24. * Hypothyroidism. Continue levothyroxine. * Atrial fibrillation. Apixaban is contraindicated in the setting of recent intracranial hemorrhage. He is not tachycardic at present and he has a regular rhythm. He will be monitored for tachycardia and will consider rate control medications if they are necessary. * Gustavo 2 Vasc score is 1, corresponding to a 0.9% annual risk of stroke/TIA/ thromboembolism. Consider initiating anti-platelet agent. Unclear that he would need to resume anticoagulation. * Constipation. Started herbal preparation per 's preference; contains cascara. * Consider MiraLax if no response. * Gluten allergy. He will have a dietary consult to optimize his nutrition. * Prophylaxis. Anticoagulation is contraindicated in the short term. Mobility is improving. Will not initiate anticoagulation at present. Continue to monitor regarding mobility. Followup: Plan will be discussed with Neurosurgery regarding subsequent head CTs and next visit with Neurosurgery. His primary care provider is Dr. Warren Waldron. His neurologist is Dr. Geraldo Alatorre, and he has seen Dr. Melissa Hartmann at the [facility] in [place]. Plan: 09/22/17 12:16 Subjective: No new complaints. Does admit to drinking significant amount of water today Objective: Vital Signs Temp Pulse Resp BP Pulse Ox 36.7 C 76 17 107/71 95 09/22/17 08:00 09/22/17 08:00 09/22/17 08:00 09/22/17 08:00 09/22/17 08:00 Laboratory Results 09/20/17 06:00 09/22/17 06:11 09/21/17 09/22/17 09/23/17 05:59 05:59 05:59 Intake Total 643 1090 Output Total 850 1825 Balance -207 -735 Physical Exam - Physical Exam General Appearance: WD/WN, alert, no apparent distress Respiratory: lungs clear, normal breath sounds, No respiratory distress Cardiac/Chest: irregularly irregular, No edema Neuro/Psych: alert, normal mood/affect, oriented x 3 ICD10 Worksheet Patient Problems: Problems Problem Status Onset Afib Acute Intracranial hemorrhage Acute
[2017-09-23] MEDS: LEVOTHYROXINE 100 MCG TAB PO SCH (06:00)
[2017-09-23] MEDS: SODIUM CHLORIDE 1,000 MG TAB PO SCH ×3 (07:29→16:58)
--- NOTE | 2017-09-23 20:42 | HOSPPROG ---
Hospitalist Progress Note Assessment/Plan: Assessment: * Intraparenchymal and subarachnoid hemorrhage with chronic subdural hemorrhage and reduced mobility and ability to carry out activities of daily living. 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 * Initial functional independence measure 72. Has right ignoral and a right floating hand. Decreased motor planning. Minimal assist for mobility to avoid colliding on right. Ambulating 150 ft or more; unclear if trekking pole verses front wheeled walker is helpful given motor apraxia. Moderate assistance for stairs and has freezing episodes while descending. Upper and lower body doing require minimal assistance. If it is not an automatic movement he can get stuck. * Continue PT and OT to optimize mobility and activities of daily living to the independent to modified independent level. Goals will include ability to safely climb and descend stairs. 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 * Mild to moderate deficits in problem solving, reasoning, attention, executive function. Decreased reading comprehension. * Continue Speech and Language Pathology. * Hyponatremia. Na 130 on 09/20/2017, down from 133 on 09/17/2017. Urine osmolalities less than serum osmolalities, not consistent with SIADH. * TSH and fasting cortisol normal, 09/21/2017. * Started oral sodium chloride replacement. Sodium improved from 130 to 132 on 09/21/2017. * Sodium a little better today 132 * Admits to drinking significant amounts of water - will have him decrease his water intake some * Recheck sodium 09/24. * Hypothyroidism. Continue levothyroxine. * Atrial fibrillation. Apixaban is contraindicated in the setting of recent intracranial hemorrhage. He is not tachycardic at present and he has a regular rhythm. He will be monitored for tachycardia and will consider rate control medications if they are necessary. * Gustavo 2 Vasc score is 1, corresponding to a 0.9% annual risk of stroke/TIA/ thromboembolism. Consider initiating anti-platelet agent. Unclear that he would need to resume anticoagulation. * Constipation. Started herbal preparation per 's preference; contains cascara. * Consider MiraLax if no response. * Gluten allergy. He will have a dietary consult to optimize his nutrition. * Prophylaxis. Anticoagulation is contraindicated in the short term. Mobility is improving. Will not initiate anticoagulation at present. Continue to monitor regarding mobility. Followup: Plan will be discussed with Neurosurgery regarding subsequent head CTs and next visit with Neurosurgery. His primary care provider is Dr. Warren Waldron. His neurologist is Dr. Geraldo Alatorre, and he has seen Dr. Melissa Hartmann at the [facility] in [place]. Plan: 09/22/17 12:16 Subjective: No new complaints. Decreasing his water intake Objective: Vital Signs Temp Pulse Resp BP Pulse Ox 36.9 C 88 16 110/82 H 94 09/23/17 20:00 09/23/17 20:00 09/23/17 20:00 09/23/17 20:00 09/23/17 20:00 Laboratory Results 09/20/17 06:00 09/22/17 06:11 09/22/17 09/23/17 09/24/17 05:59 05:59 05:59 Intake Total 1090 450 178 Output Total 1825 1450 500 Balance -735 -1000 -322 - Physical Exam Constitutional: no apparent distress, appears nourished, not in pain Eyes: anicteric sclera, EOMI Cardiovascular: irregularly irregular Respiratory: no respiratory distress Skin: warm Neurologic: AAOx3 Psychiatric: interacting appropriately, not anxious, not encephalopathic, thought process linear ICD10 Worksheet Patient Problems: Problems Problem Status Onset Afib Acute Intracranial hemorrhage Acute
[2017-09-24] MEDS: LEVOTHYROXINE 100 MCG TAB PO SCH (06:23)
[2017-09-24] MEDS: SODIUM CHLORIDE 1,000 MG TAB PO SCH ×3 (08:00→17:38)
--- NOTE | 2017-09-24 09:58 | SOAPPROG ---
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 * Initial functional independence measure 72 on 09/21/2017. Has right ignoral and a right floating hand. Decreased motor planning. Minimal assist for mobility to avoid colliding on right. Ambulating 150 ft or more; unclear if trekking pole verses front wheeled walker is helpful given motor apraxia. Moderate assistance for stairs and has freezing episodes while descending. Upper and lower body doing require minimal assistance. If it is not an automatic movement he can get stuck. * Continue PT and OT to optimize mobility and activities of daily living to the independent to modified independent level. Goals will include ability to safely climb and descend stairs. 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 * Mild to moderate deficits in problem solving, reasoning, attention, executive function. Decreased reading comprehension. * Continue Speech and Language Pathology. * Hyponatremia. Na 130 on 09/20/2017, down from 133 on 09/17/2017. Urine osmolalities less than serum osmolalities, not consistent with SIADH. * TSH and fasting cortisol normal, 09/21/2017. * Started oral sodium chloride replacement. Sodium improved from 130 to 132 on 09/21/2017; . * Normalized as of 09/24/2017. * Depression vs. adjustment disorder with depressed mood * Noted to be emotionally labile. * Might contribute to insomnia. * He denies any history of depression in his life and does not want to take antidepressants. * Consider medication approach if insomnia persists. * Hypothyroidism. Continue levothyroxine. * Atrial fibrillation. Apixaban is contraindicated in the setting of recent intracranial hemorrhage. He is not tachycardic at present and he has a regular rhythm. He will be monitored for tachycardia and will consider rate control medications if they are necessary. * Gustavo 2 Vasc score is 1, corresponding to a 0.9% annual risk of stroke/TIA/ thromboembolism. Consider initiating anti-platelet agent. Unclear that he would need to resume anticoagulation. * Constipation. Started herbal preparation per 's preference; contains cascara. * Consider MiraLax if no response. * Gluten allergy. He will have a dietary consult to optimize his nutrition. * Prophylaxis. Anticoagulation is contraindicated in the short term. Mobility is improving. Will not initiate anticoagulation at present. Continue to monitor regarding mobility. He and his are in the process of moving to [place] and their home in [place] is on the market. They were planning to occupy the new home in [place] in November. May need interim discharge disposition. Tentative discharge date set for 10/05/2017. Followup: Plan will be discussed with Neurosurgery regarding subsequent head CTs and next visit with Neurosurgery. His primary care provider is Dr. Warren Waldron. His neurologist is Dr. Geraldo Alatorre, and he has seen Dr. Melissa Hartmann at the [facility] in [place]. 09/24/17 15:40 Subjective: Complains of poor sleep last night. Says he got in bed to early and then he could sleep. Feels fatigued today. Objective: Vital Signs Temp Pulse Resp BP Pulse Ox 36.4 C 62 16 111/73 96 09/24/17 07:50 09/24/17 07:50 09/24/17 07:50 09/24/17 07:50 09/24/17 07:50 Laboratory Results 09/20/17 06:00 09/24/17 06:45 09/23/17 09/24/17 09/25/17 05:59 05:59 05:59 Intake Total 450 678 Output Total 1450 2200 Balance -1000 -1522 Physical Exam - Physical Exam General Appearance: WD/WN, alert, no apparent distress Respiratory: normal breath sounds, No crackles, No rhonchi, No wheezing Cardiac/Chest: regular rate, rhythm, No edema Skin: normal color, warm/dry, other (Ecchymosis over the right side of his chin) Neuro/Psych: alert, normal mood/affect, speech abnormalities ICD10 Worksheet Patient Problems: Problems Problem Status Onset Afib Acute Intracranial hemorrhage Acute
[2017-09-25] MEDS: LEVOTHYROXINE 100 MCG TAB PO SCH (05:24)
[2017-09-25] MEDS: SODIUM CHLORIDE 1,000 MG TAB PO SCH ×3 (08:17→17:43)
--- NOTE | 2017-09-25 12:20 | SOAPPROG ---
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 * Initial functional independence measure 72 on 09/21/2017. Has right ignoral and a right floating hand. Decreased motor planning. Minimal assist for mobility to avoid colliding on right. Ambulating 150 ft or more; unclear if trekking pole verses front wheeled walker is helpful given motor apraxia. Moderate assistance for stairs and has freezing episodes while descending. Upper and lower body doing require minimal assistance. If it is not an automatic movement he can get stuck. * Continue PT and OT to optimize mobility and activities of daily living to the independent to modified independent level. Goals will include ability to safely climb and descend stairs. 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 * Mild to moderate deficits in problem solving, reasoning, attention, executive function. Decreased reading comprehension. * Continue Speech and Language Pathology. * Hyponatremia. Na 130 on 09/20/2017, down from 133 on 09/17/2017. Urine osmolalities less than serum osmolalities, not consistent with SIADH. * TSH and fasting cortisol normal, 09/21/2017. * Started oral sodium chloride replacement. Sodium improved from 130 to 132 on 09/21/2017; . * Normalized as of 09/24/2017. * Depression vs. adjustment disorder with depressed mood * Noted to be emotionally labile. * Reports good sleep - 09/25/2017. * Reports not feeling depressed and does not want antidepressants, on discussion 09/24/2017 and 09/25/2017. * Hypothyroidism. Continue levothyroxine. * Atrial fibrillation. Apixaban is contraindicated in the setting of recent intracranial hemorrhage. He is not tachycardic at present and he has a regular rhythm. He will be monitored for tachycardia and will consider rate control medications if they are necessary. * Gustavo 2 Vasc score is 1, corresponding to a 0.9% annual risk of stroke/TIA/ thromboembolism. Consider initiating anti-platelet agent. Unclear that he would need to resume anticoagulation. * Constipation. Started herbal preparation per 's preference; contains cascara. * Consider MiraLax if no response. * Gluten allergy. He will have a dietary consult to optimize his nutrition. * Prophylaxis. Anticoagulation is contraindicated in the short term. Mobility is improving. Will not initiate anticoagulation at present. Continue to monitor regarding mobility. He and his are in the process of moving to [place] and their home in [place] is on the market. They were planning to occupy the new home in [place] in November. May need interim discharge disposition. Tentative discharge date set for 10/05/2017. Followup: Plan will be discussed with Neurosurgery regarding subsequent head CTs and next visit with Neurosurgery. His primary care provider is Dr. Warren Waldron. His neurologist is Dr. Geraldo Alatorre, and he has seen Dr. Melissa Hartmann at the [facility] in [place]. 09/25/17 12:20 Subjective: Slept well last night. Reports he does not feel depressed. No cough or dyspnea , nurse or chills. Not in pain. Objective: Vital Signs Temp Pulse Resp BP Pulse Ox 36.5 C 85 16 98/73 L 96 09/25/17 08:00 09/25/17 08:00 09/25/17 08:00 09/25/17 08:00 09/25/17 08:00 Laboratory Results 09/20/17 06:00 09/24/17 06:45 09/24/17 09/25/17 09/26/17 05:59 05:59 05:59 Intake Total 678 790 570 Output Total 2200 600 1850 Balance -1522 190 -1280 Physical Exam - Physical Exam General Appearance: WD/WN, alert, no apparent distress Respiratory: normal breath sounds, No crackles, No rhonchi, No wheezing Cardiac/Chest: regular rate, rhythm, No edema, No diastolic murmur, No systolic murmur Skin: normal color, warm/dry, other (Ecchymosis right chin) Neuro/Psych: alert, normal mood/affect, oriented x 3, abnormal gait (Short steps , festinating, episodes of freezing.), speech abnormalities (Hypophonic, dysprosody.) ICD10 Worksheet Patient Problems: Problems Problem Status Onset Afib Acute Intracranial hemorrhage Acute
[2017-09-26] MEDS: LEVOTHYROXINE 100 MCG TAB PO SCH (06:34)
[2017-09-26] MEDS: SODIUM CHLORIDE 1,000 MG TAB PO SCH ×3 (08:43→17:46)
--- NOTE | 2017-09-26 12:44 | SOAPPROG ---
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 * Initial functional independence measure 72 on 09/21/2017, improved to 82 as of . Contact guard assist for transfers and walking with a 4 wheeled walker. Climbed ascended 6 stairs with 2 rails contact guard assist but has freezing episodes when distended. He has variable motor apraxia. Assist for dressing ranges from setup to minimal assist. Has right ignoral and a right floating hand. Needs assist and cues for right hand placement during ADLs. Decreased motor planning. Upper and lower body doing require minimal assistance. * Continue PT and OT to optimize mobility and activities of daily living to the independent to modified independent level. Goals will include ability to safely climb and descend stairs. 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 * Mild to moderate deficits in problem solving, reasoning, attention, executive function. Decreased reading comprehension. * Hypernasal resonance, dysfluency in decreased vocal intensity. * Continue Speech and Language Pathology. * Hyponatremia. Na 130 on 09/20/2017, down from 133 on 09/17/2017. Urine osmolalities less than serum osmolalities, not consistent with SIADH. * TSH and fasting cortisol normal, 09/21/2017. * Started oral sodium chloride replacement. Sodium improved from 130 to 132 on 09/21/2017; . * Normalized as of 09/24/2017. * Reduce NaCl supplement from three times daily to twice daily on 09/26/2017. Recheck BMP on 09/28/2017 * Depression vs. adjustment disorder with depressed mood * Noted to be emotionally labile. * Reports good sleep - 09/25/2017. * Reports not feeling depressed and does not want antidepressants, on discussion 09/24/2017 and 09/25/2017. * Hypothyroidism. Continue levothyroxine. * Atrial fibrillation. Apixaban is contraindicated in the setting of recent intracranial hemorrhage. He is not tachycardic at present and he has a regular rhythm. He will be monitored for tachycardia and will consider rate control medications if they are necessary. * Gustavo 2 Vasc score is 1, corresponding to a 0.9% annual risk of stroke/TIA/ thromboembolism. Consider initiating anti-platelet agent. Unclear that he would need to resume anticoagulation. * Constipation. Started herbal preparation per 's preference; contains cascara. * Consider MiraLax if no response. * Gluten allergy. He will have a dietary consult to optimize his nutrition. * Prophylaxis. Anticoagulation is contraindicated in the short term. Mobility is improving. Will not initiate anticoagulation at present. Continue to monitor regarding mobility. Attended staffing, 15 min. Discussed with case management, pharmacy, dietitian , nursing, PT, OT, PATTERN WEAVER. He and his are in the process of moving to [place] and their home in [place] is on the market. They were planning to occupy the new home in [place] in November. They have an interim option of house sitting in a ranch house for friends or out of town, in [place]. Tentative discharge date set for 10/05/2017. Followup: Followup with Neurosurgery 2-3 weeks after hospital discharge or approximately 10/03 - 10/09/2017. Will have head CT per Neurosurgery.. His primary care provider is Dr. Warren Waldron. His neurologist is Dr. Geraldo Alatorre, and he has seen Dr. Melissa Hartmann at the [facility] in [place]. 09/26/17 12:22 Subjective: No complaints. Slept well. Positive outlook. Wants to know how long he needs to take the sodium chloride tablets. Objective: Vital Signs Temp Pulse Resp BP Pulse Ox 36.7 C 86 15 117/82 H 93 09/26/17 08:00 09/26/17 08:00 09/26/17 08:00 09/26/17 08:00 09/26/17 08:00 Laboratory Results 09/20/17 06:00 09/24/17 06:45 09/25/17 09/26/17 09/27/17 05:59 05:59 05:59 Intake Total 790 1270 360 Output Total 600 3050 Balance 190 -1780 360 - Time Spent With Patient Time Spent With Patient: Greater than 35 min floor time today, including more than 50% of time in coordination of care during staffing meeting, and counseling patient. Physical Exam - Physical Exam General Appearance: WD/WN, alert, no apparent distress Respiratory: No respiratory distress, No accessory muscle use Skin: normal color, warm/dry Neuro/Psych: alert, normal mood/affect, oriented x 3, speech abnormalities ICD10 Worksheet Patient Problems: Problems Problem Status Onset Afib Acute Intracranial hemorrhage Acute
[2017-09-27] MEDS: LEVOTHYROXINE 100 MCG TAB PO SCH (06:48)
[2017-09-27] MEDS: SODIUM CHLORIDE 1,000 MG TAB PO SCH ×2 (08:19→17:37)
--- NOTE | 2017-09-27 12:50 | SOAPPROG ---
SOAP Progress Note Assessment/Plan: 72-year-old male status post intracranial hemorrhage with a history of cortical basal degeneration, impairments in mobility, self-care, cognition. Today's update: Patient endorses neck pain that is common for him, described as left-sided, came on a couple of days ago, not helped by anything, not hurt by anything. He feels very strongly that he needs to see a chiropractor as his usual treatment. He would settle for massage as a secondary measure. Otherwise , doing well from a therapy standpoint no concerns today. Plan below is unchanged otherwise. 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 * Initial functional independence measure 72 on 09/21/2017, improved to 82 as of . Contact guard assist for transfers and walking with a 4 wheeled walker. Climbed ascended 6 stairs with 2 rails contact guard assist but has freezing episodes when distended. He has variable motor apraxia. Assist for dressing ranges from setup to minimal assist. Has right ignoral and a right floating hand. Needs assist and cues for right hand placement during ADLs. Decreased motor planning. Upper and lower body doing require minimal assistance. * Continue PT and OT to optimize mobility and activities of daily living to the independent to modified independent level. Goals will include ability to safely climb and descend stairs. 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 * Mild to moderate deficits in problem solving, reasoning, attention, executive function. Decreased reading comprehension. * Hypernasal resonance, dysfluency in decreased vocal intensity. * Continue Speech and Language Pathology. * Hyponatremia. Na 130 on 09/20/2017, down from 133 on 09/17/2017. Urine osmolalities less than serum osmolalities, not consistent with SIADH. * TSH and fasting cortisol normal, 09/21/2017. * Started oral sodium chloride replacement. Sodium improved from 130 to 132 on 09/21/2017; . * Normalized as of 09/24/2017. * Reduce NaCl supplement from three times daily to twice daily on 09/26/2017. Recheck BMP on 09/28/2017 * Depression vs. adjustment disorder with depressed mood * Noted to be emotionally labile. * Reports good sleep 4/9/ - 09/25/2017. * Reports not feeling depressed and does not want antidepressants, on discussion 09/24/2017 and 09/25/2017. * Hypothyroidism. Continue levothyroxine. * Atrial fibrillation. Apixaban is contraindicated in the setting of recent intracranial hemorrhage. He is not tachycardic at present and he has a regular rhythm. He will be monitored for tachycardia and will consider rate control medications if they are necessary. * Gustavo 2 Vasc score is 1, corresponding to a 0.9% annual risk of stroke/TIA/ thromboembolism. Consider initiating anti-platelet agent. Unclear that he would need to resume anticoagulation. * Constipation. Started herbal preparation per 's preference; contains cascara. * Consider MiraLax if no response. * Gluten allergy. He will have a dietary consult to optimize his nutrition. * Prophylaxis. Anticoagulation is contraindicated in the short term. Mobility is improving. Will not initiate anticoagulation at present. Continue to monitor regarding mobility. He and his are in the process of moving to [place] and their home in [place] is on the market. They were planning to occupy the new home in [place] in November. They have an interim option of house sitting in a ranch house for friends or out of town, in [place]. Tentative discharge date set for 10/05/2017. Followup: Followup with Neurosurgery 2-3 weeks after hospital discharge or approximately 10/03 - 10/09/2017. Will have head CT per Neurosurgery.. His primary care provider is Dr. Warren Waldron. His neurologist is Dr. Geraldo Alatorre, and he has seen Dr. Melissa Hartmann at the [facility] in [place]. 09/27/17 12:47 Subjective: Chief complaint: Neck pain No acute events overnight. Patient denies any new shortness of breath or chest pain, no new numbness, tingling, or weakness or any bowel or bladder changes. Patient endorses that he has moderately severe left-sided neck pain as per his usual neck pain that occurred 2 days ago and has continued without new symptoms. When he has treated this in the past he sees his chiropractor and would like to do this today as well. Counseled him that a chiropractor may not be available as an inpatient in [facility] but massage may be available and he is open to that an open to paying [id number] for that service. Objective: Vital Signs Temp Pulse Resp BP Pulse Ox 36.8 C 76 16 114/88 H 100 09/27/17 08:00 09/27/17 08:00 09/27/17 08:00 09/27/17 08:00 09/27/17 08:00 Laboratory Results 09/20/17 06:00 09/24/17 06:45 09/26/17 09/27/17 09/28/17 05:59 05:59 05:59 Intake Total 1270 620 250 Output Total 3050 1000 150 Balance -1780 -380 100 Physical Exam - Physical Exam General Appearance: WD/WN, alert, no apparent distress EENT: No scleral icterus (R), No scleral icterus (L) Neck: other (Tender on the left neck in the musculature), No non-tender, No full range of motion Respiratory: No respiratory distress, No accessory muscle use Cardiac/Chest: normal peripheral pulses, regular rate, rhythm, No edema Skin: normal color, warm/dry, No cyanosis, No diaphoresis Extremities: No pedal edema, No swelling Neuro/Psych: alert, normal mood/affect, other (Patient has decreased coordination in the right hand compared to the left but decreased on both sides. Global weakness) ICD10 Worksheet Patient Problems: Problems Problem Status Onset Afib Acute Intracranial hemorrhage Acute
[2017-09-28] MEDS: LEVOTHYROXINE 100 MCG TAB PO SCH (05:36)
[2017-09-28] MEDS: SODIUM CHLORIDE 1,000 MG TAB PO SCH (08:43)
--- NOTE | 2017-09-28 15:26 | SOAPPROG ---
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 * Initial functional independence measure 72 on 09/21/2017, improved to 82 as of . Contact guard assist for transfers and walking with a 4 wheeled walker. Climbed and descended 6 stairs with 2 rails contact guard assist but has freezing episodes when distended. He has variable motor apraxia. Assist for dressing ranges from setup to minimal assist. Has right ignoral and a right floating hand. Needs assist and cues for right hand placement during ADLs. Decreased motor planning. Upper and lower body doing require minimal assistance. * Continue PT and OT to optimize mobility and activities of daily living to the independent to modified independent level. Goals will include ability to safely climb and descend stairs. 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 * Mild to moderate deficits in problem solving, reasoning, attention, executive function. Decreased reading comprehension. * Hypernasal resonance, dysfluency in decreased vocal intensity. * Continue Speech and Language Pathology. * Hyponatremia. Na 130 on 09/20/2017, down from 133 on 09/17/2017. Urine osmolalities less than serum osmolalities, not consistent with SIADH. * TSH and fasting cortisol normal, 09/21/2017. * Started oral sodium chloride replacement. Sodium improved from 130 to 132 on 09/21/2017; . * Normalized as of 09/24/2017. * Reduce NaCl supplement from three times daily to twice daily on 09/26/2017. Na normal on BMP on 09/28/2017. Reduce NaCl further to QD starting 09/27/2017. Recheck BMP on 10/01/2017. * Depression vs. adjustment disorder with depressed mood * Noted to be emotionally labile. * Reports good sleep - 09/25/2017. * Reports not feeling depressed and does not want antidepressants, on discussion 09/24/2017 and 09/25/2017. * Hypothyroidism. Continue levothyroxine. * Atrial fibrillation. Apixaban is contraindicated in the setting of recent intracranial hemorrhage. He is not tachycardic at present and he has a regular rhythm. He will be monitored for tachycardia and will consider rate control medications if they are necessary. * Gustavo 2 Vasc score is 1, corresponding to a 0.9% annual risk of stroke/TIA/ thromboembolism. Consider initiating anti-platelet agent. Unclear that he would need to resume anticoagulation. * Constipation. Started herbal preparation per 's preference; contains cascara. * Consider MiraLax if no response. * Gluten allergy. He will have a dietary consult to optimize his nutrition. * Prophylaxis. Anticoagulation is contraindicated in the short term. Mobility is improving. Will not initiate anticoagulation at present. Continue to monitor regarding mobility. He and his are in the process of moving to [place] and their home in [place] is on the market. They were planning to occupy the new home in [place] in November. They have an interim option of house sitting in a ranch house for friends or out of town, in [place]. Tentative discharge date set for 10/05/2017. Followup: Followup with Neurosurgery 2-3 weeks after hospital discharge or approximately 10/03 - 10/09/2017. Will have head CT per Neurosurgery.. His primary care provider is Dr. Warren Waldron. His neurologist is Dr. Geraldo Alatorre, and he has seen Dr. Melissa Hartmann at the [facility] in [place]. 09/28/17 15:23 Subjective: No complaints. Slept well. No cough or dyspnea, no fevers or chills, no palpitations. Objective: Vital Signs Temp Pulse Resp BP Pulse Ox 36.4 C 89 14 126/94 H 97 09/28/17 08:24 09/28/17 08:24 09/28/17 08:24 09/28/17 08:24 09/28/17 08:24 Laboratory Results 09/20/17 06:00 09/28/17 05:40 09/27/17 09/28/17 09/29/17 05:59 05:59 05:59 Intake Total 620 1836 Output Total 1000 1800 150 Balance -380 36 -150 Physical Exam - Physical Exam General Appearance: WD/WN, alert, no apparent distress Respiratory: normal breath sounds, No crackles, No rhonchi, No wheezing Cardiac/Chest: regular rate, rhythm, No edema, No diastolic murmur, No systolic murmur Skin: normal color, warm/dry Neuro/Psych: alert, normal mood/affect, oriented x 3, speech abnormalities ICD10 Worksheet Patient Problems: Problems Problem Status Onset Afib Acute Intracranial hemorrhage Acute
[2017-09-29] MEDS: LEVOTHYROXINE 100 MCG TAB PO SCH (05:59)
[2017-09-29] MEDS: SODIUM CHLORIDE 1,000 MG TAB PO SCH (08:53)
--- NOTE | 2017-09-29 10:30 | SOAPPROG ---
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 * Initial functional independence measure 72 on 09/21/2017, improved to 82 as of . Contact guard assist for transfers and walking with a 4 wheeled walker. Climbed and descended 6 stairs with 2 rails contact guard assist but has freezing episodes when distended. He has variable motor apraxia. Assist for dressing ranges from setup to minimal assist. Has right ignoral and a right floating hand. Needs assist and cues for right hand placement during ADLs. Decreased motor planning. Upper and lower body doing require minimal assistance. * Continue PT and OT to optimize mobility and activities of daily living to the independent to modified independent level. Goals will include ability to safely climb and descend stairs. 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 * Mild to moderate deficits in problem solving, reasoning, attention, executive function. Decreased reading comprehension. * Hypernasal resonance, dysfluency in decreased vocal intensity. * Continue Speech and Language Pathology. * Hyponatremia. Na 130 on 09/20/2017, down from 133 on 09/17/2017. Urine osmolalities less than serum osmolalities, not consistent with SIADH. * TSH and fasting cortisol normal, 09/21/2017. * Started oral sodium chloride replacement. Sodium improved from 130 to 132 on 09/21/2017; . * Normalized as of 09/24/2017. * Reduce NaCl supplement from three times daily to twice daily on 09/26/2017. Na normal on BMP on 09/28/2017. Reduce NaCl further to QD starting 09/27/2017. Recheck BMP on 10/01/2017. * Depression vs. adjustment disorder with depressed mood * Noted to be emotionally labile. * Reports good sleep - 09/25/2017. * Reports not feeling depressed and does not want antidepressants, on discussion 09/24/2017 and 09/25/2017. * Hypothyroidism. Continue levothyroxine. * Atrial fibrillation. Apixaban is contraindicated in the setting of recent intracranial hemorrhage. He is not tachycardic at present and he has a regular rhythm. He will be monitored for tachycardia and will consider rate control medications if they are necessary. * Gustavo 2 Vasc score is 1, corresponding to a 0.9% annual risk of stroke/TIA/ thromboembolism. Consider initiating anti-platelet agent. Unclear that he would need to resume anticoagulation. * Constipation. Started herbal preparation per 's preference; contains cascara. * Consider MiraLax if no response. * Gluten allergy. He will have a dietary consult to optimize his nutrition. * Prophylaxis. Anticoagulation is contraindicated in the short term. Mobility is improving. Will not initiate anticoagulation at present. Continue to monitor regarding mobility. He and his are in the process of moving to [place] and their home in [place] is on the market. They were planning to occupy the new home in [place] in November. They have an interim option of house sitting in a ranch house for friends or out of town, in [place]. Tentative discharge date set for 10/05/2017. Followup: Followup with Neurosurgery 2-3 weeks after hospital discharge or approximately 10/03 - 10/09/2017. Will have head CT per Neurosurgery.. His primary care provider is Dr. Warren Waldron. His neurologist is Dr. Geraldo Alatorre, and he has seen Dr. Melissa Hartmann at the [facility] in [place] Today's Plan: Pt without symptoms of acute hyponatremia - has planned f/u of labs on Sunday 10/01. Responding well to current medications for bowels. Mood has been stable. No rate control needed at current but will continue to monitor. Will get a CBC in the morning to monitor/trend anemia. 09/29/17 10:27 Subjective: No concerns today - feeling pretty good and not reporting any pain. No fevers/ chills. Objective: Vital Signs Temp Pulse Resp BP Pulse Ox 37.0 C 66 14 110/80 93 09/29/17 06:38 09/29/17 06:38 09/29/17 06:38 09/29/17 06:38 09/29/17 06:38 Laboratory Results 09/20/17 06:00 09/28/17 05:40 09/28/17 09/29/17 09/30/17 05:59 05:59 05:59 Intake Total 1836 400 Output Total 1800 1750 Balance 36 -1350 Physical Exam - Physical Exam General Appearance: alert, no apparent distress Respiratory: lungs clear, normal breath sounds Cardiac/Chest: other (Regular rate ) Abdomen: normal bowel sounds, non-tender Neuro/Psych: alert, normal mood/affect ICD10 Worksheet Patient Problems: Problems Problem Status Onset Afib Acute Intracranial hemorrhage Acute
[2017-09-30] MEDS: LEVOTHYROXINE 100 MCG TAB PO SCH (05:37)
[2017-09-30] MEDS: SODIUM CHLORIDE 1,000 MG TAB PO SCH (08:02)
--- NOTE | 2017-09-30 11:10 | SOAPPROG ---
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 * Initial functional independence measure 72 on 09/21/2017, improved to 82 as of . Contact guard assist for transfers and walking with a 4 wheeled walker. Climbed and descended 6 stairs with 2 rails contact guard assist but has freezing episodes when distended. He has variable motor apraxia. Assist for dressing ranges from setup to minimal assist. Has right ignoral and a right floating hand. Needs assist and cues for right hand placement during ADLs. Decreased motor planning. Upper and lower body doing require minimal assistance. * Continue PT and OT to optimize mobility and activities of daily living to the independent to modified independent level. Goals will include ability to safely climb and descend stairs. 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 * Mild to moderate deficits in problem solving, reasoning, attention, executive function. Decreased reading comprehension. * Hypernasal resonance, dysfluency in decreased vocal intensity. * Continue Speech and Language Pathology. * Hyponatremia. Na 130 on 09/20/2017, down from 133 on 09/17/2017. Urine osmolalities less than serum osmolalities, not consistent with SIADH. * TSH and fasting cortisol normal, 09/21/2017. * Started oral sodium chloride replacement. Sodium improved from 130 to 132 on 09/21/2017; . * Normalized as of 09/24/2017. * Reduce NaCl supplement from three times daily to twice daily on 09/26/2017. Na normal on BMP on 09/28/2017. Reduce NaCl further to QD starting 09/27/2017. Recheck BMP on 10/01/2017. * Depression vs. adjustment disorder with depressed mood * Noted to be emotionally labile. * Reports good sleep - 09/25/2017. * Reports not feeling depressed and does not want antidepressants, on discussion 09/24/2017 and 09/25/2017. * Hypothyroidism. Continue levothyroxine. * Atrial fibrillation. Apixaban is contraindicated in the setting of recent intracranial hemorrhage. He is not tachycardic at present and he has a regular rhythm. He will be monitored for tachycardia and will consider rate control medications if they are necessary. * Gustavo 2 Vasc score is 1, corresponding to a 0.9% annual risk of stroke/TIA/ thromboembolism. Consider initiating anti-platelet agent. Unclear that he would need to resume anticoagulation. * Constipation. Started herbal preparation per 's preference; contains cascara. * Consider MiraLax if no response. * Gluten allergy. He will have a dietary consult to optimize his nutrition. * Prophylaxis. Anticoagulation is contraindicated in the short term. Mobility is improving. Will not initiate anticoagulation at present. Continue to monitor regarding mobility. He and his are in the process of moving to [place] and their home in [place] is on the market. They were planning to occupy the new home in [place] in November. They have an interim option of house sitting in a ranch house for friends or out of town, in [place]. Tentative discharge date set for 10/05/2017. Followup: Followup with Neurosurgery 2-3 weeks after hospital discharge or approximately 10/03 - 10/09/2017. Will have head CT per Neurosurgery.. His primary care provider is Dr. Warren Waldron. His neurologist is Dr. Geraldo Alatorre, and he has seen Dr. Melissa Hartmann at the [facility] in [place] Today's Plan: Anemia stable - may need additional support such as iron/vit c. Continue on current management for the A-fib. Will have repeat BMP in the morning to monitor Sodium levels. 09/30/17 11:06 Subjective: No new concerns this morning - anxious to know about his cbc that was drawn this morning. We discussed that will also have another blood draw tomorrow to recheck his sodium levels. no new concerns, no fevers/chills, lethargy, increased confusion. Objective: Vital Signs Temp Pulse Resp BP Pulse Ox 36.8 C 88 16 116/93 H 92 09/29/17 20:00 09/30/17 08:00 09/30/17 08:00 09/30/17 08:00 09/30/17 08:00 Laboratory Results 09/30/17 06:00 09/28/17 05:40 09/29/17 09/30/17 10/01/17 05:59 05:59 05:59 Intake Total 400 920 350 Output Total 1750 1000 800 Balance -1350 -80 -450 Physical Exam - Physical Exam General Appearance: alert, no apparent distress Respiratory: lungs clear, normal breath sounds Cardiac/Chest: normal peripheral pulses (regular rate) Abdomen: non-tender, soft Extremities: other (no LE edema) Neuro/Psych: alert, normal mood/affect, other (dysarthria) ICD10 Worksheet Patient Problems: Problems Problem Status Onset Afib Acute Intracranial hemorrhage Acute
[2017-10-01] MEDS: LEVOTHYROXINE 100 MCG TAB PO SCH (05:50)
[2017-10-01] MEDS: SODIUM CHLORIDE 1,000 MG TAB PO SCH (07:39)
--- NOTE | 2017-10-01 12:31 | SOAPPROG ---
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 * Initial functional independence measure 72 on 09/21/2017, improved to 82 as of . Contact guard assist for transfers and walking with a 4 wheeled walker. Climbed and descended 6 stairs with 2 rails contact guard assist but has freezing episodes when distended. He has variable motor apraxia. Assist for dressing ranges from setup to minimal assist. Has right ignoral and a right floating hand. Needs assist and cues for right hand placement during ADLs. Decreased motor planning. Upper and lower body dressing require minimal assistance. * Continue PT and OT to optimize mobility and activities of daily living to the independent to modified independent level. Goals will include ability to safely climb and descend stairs. * Asked nursing to ambulate with him after dinner and before bed. 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 * Mild to moderate deficits in problem solving, reasoning, attention, executive function. Decreased reading comprehension. * Hypernasal resonance, dysfluency in decreased vocal intensity. * Continue Speech and Language Pathology. * Hyponatremia. Na 130 on 09/20/2017, down from 133 on 09/17/2017. Urine osmolalities less than serum osmolalities, not consistent with SIADH. * TSH and fasting cortisol normal, 09/21/2017. * Started oral sodium chloride replacement. Sodium improved from 130 to 132 on 09/21/2017; . * Normalized as of 09/24/2017. * Reduce NaCl supplement from three times daily to twice daily on 09/26/2017. Na normal on BMP on 09/28/2017. Reduce NaCl further to QD starting 09/27/2017. Na 138 on BMP 10/01/2017. D/C NaCl supplement. Recheck in AM 10/03/2017. * Depression vs. adjustment disorder with depressed mood * Noted to be emotionally labile. * Reports good sleep 09/24 - 09/25/2017. * Reports not feeling depressed and does not want antidepressants, on discussion 09/24/2017 and 09/25/2017. * Hypothyroidism. Continue levothyroxine. * Atrial fibrillation. Apixaban is contraindicated in the setting of recent intracranial hemorrhage. He is not tachycardic at present and he has a regular rhythm. He will be monitored for tachycardia and will consider rate control medications if they are necessary. * Gustavo 2 Vasc score is 1, corresponding to a 0.9% annual risk of stroke/TIA/ thromboembolism. Consider initiating anti-platelet agent. Unclear that he would need to resume anticoagulation. * Constipation. Started herbal preparation per 's preference; contains cascara. * Gluten allergy. He will have a dietary consult to optimize his nutrition. * Prophylaxis. Anticoagulation is contraindicated in the short term. Mobility is improving. Will not initiate anticoagulation at present. Continue to monitor regarding mobility. He and his are in the process of moving to [place] and their home in [place] is on the market. They were planning to occupy the new home in [place] in November. They have an interim option of house sitting in a ranch house for friends or out of town, in [place]. Tentative discharge date set for 10/05/2017. Followup: Followup with Neurosurgery 2-3 weeks after hospital discharge or approximately 10/03 - 10/09/2017. Will have head CT per Neurosurgery.. His primary care provider is Dr. Warren Waldron. His neurologist is Dr. Geraldo Alatorre, and he has seen Dr. Melissa Hartmann at the [facility] in [place]. 10/01/17 13:41 Subjective: No complaints. Not in pain. Sleeping well. No cough or dyspnea, no fevers or chills. He reports he would like to ambulate in the green before bed after dinner. Objective: Vital Signs Temp Pulse Resp BP Pulse Ox 36.4 C 84 16 110/86 H 94 10/01/17 07:30 10/01/17 07:30 10/01/17 07:30 10/01/17 07:30 10/01/17 07:30 Laboratory Results 09/30/17 06:00 10/01/17 06:10 09/30/17 10/01/17 10/02/17 05:59 05:59 05:59 Intake Total 920 1650 240 Output Total 1000 2400 Balance -80 -750 240 Physical Exam - Physical Exam General Appearance: WD/WN, alert, no apparent distress Respiratory: No respiratory distress, No accessory muscle use Skin: normal color, warm/dry Neuro/Psych: alert, normal mood/affect, oriented x 3, abnormal gait (Short steps , drags heel at the end of each forward step bilaterally. More upright and walking faster.), motor weakness (Bilateral upper extremity ataxia), other ( Perseverative) ICD10 Worksheet Patient Problems: Problems Problem Status Onset Afib Acute Intracranial hemorrhage Acute
[2017-10-02] MEDS: LEVOTHYROXINE 100 MCG TAB PO SCH (06:00)
--- NOTE | 2017-10-02 11:18 | SOAPPROG ---
SOAP Progress Note Assessment/Plan: 72-year-old male status post intracranial hemorrhage with a history of cortical basal degeneration, impairments in mobility, self-care, cognition. Today's update: Patient is doing well without concerns. Rehab therapy is going well. A total of 20 min was spent in the care of the patient, the majority of which was spent in counseling and coordination of care regarding discharge planning and counseling about recovery. Remainder of medical plan below is relatively unchanged. Plan to discharge to his existing home and [place] with ultimate residence in [place]. He said he experiences some occasional orthostasis, counseled for strategies to minimize risk of orthostasis including hydration and standing slowly, squeezing legs. 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 * Initial functional independence measure 72 on 09/21/2017, improved to 82 as of . Contact guard assist for transfers and walking with a 4 wheeled walker. Climbed and descended 6 stairs with 2 rails contact guard assist but has freezing episodes when distended. He has variable motor apraxia. Assist for dressing ranges from setup to minimal assist. Has right ignoral and a right floating hand. Needs assist and cues for right hand placement during ADLs. Decreased motor planning. Upper and lower body dressing require minimal assistance. * Continue PT and OT to optimize mobility and activities of daily living to the independent to modified independent level. Goals will include ability to safely climb and descend stairs. * Asked nursing to ambulate with him after dinner and before bed. 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 * Mild to moderate deficits in problem solving, reasoning, attention, executive function. Decreased reading comprehension. * Hypernasal resonance, dysfluency in decreased vocal intensity. * Continue Speech and Language Pathology. * Hyponatremia. Na 130 on 09/20/2017, down from 133 on 09/17/2017. Urine osmolalities less than serum osmolalities, not consistent with SIADH. * TSH and fasting cortisol normal, 09/21/2017. * Started oral sodium chloride replacement. Sodium improved from 130 to 132 on 09/21/2017; . * Normalized as of 09/24/2017. * Reduce NaCl supplement from three times daily to twice daily on 09/26/2017. Na normal on BMP on 09/28/2017. Reduce NaCl further to QD starting 09/27/2017. Na 138 on BMP 10/01/2017. D/C NaCl supplement. Recheck in AM 10/03/2017. * Depression vs. adjustment disorder with depressed mood * Noted to be emotionally labile. * Reports good sleep 09/24 - 09/25/2017. * Reports not feeling depressed and does not want antidepressants, on discussion 09/24/2017 and 09/25/2017. * Hypothyroidism. Continue levothyroxine. * Atrial fibrillation. Apixaban is contraindicated in the setting of recent intracranial hemorrhage. He is not tachycardic at present and he has a regular rhythm. He will be monitored for tachycardia and will consider rate control medications if they are necessary. * Gustavo 2 Vasc score is 1, corresponding to a 0.9% annual risk of stroke/TIA/ thromboembolism. Consider initiating anti-platelet agent. Unclear that he would need to resume anticoagulation. * Constipation. Started herbal preparation per 's preference; contains cascara. * Gluten allergy. He will have a dietary consult to optimize his nutrition. * Prophylaxis. Anticoagulation is contraindicated in the short term. Mobility is improving. Will not initiate anticoagulation at present. Continue to monitor regarding mobility. He and his are in the process of moving to [place] and their home in [place] is on the market. They were planning to occupy the new home in [place] in November. They will be living in their existing home and [place] on discharge. Tentative discharge date set for 10/05/2017. Followup: Followup with Neurosurgery 2-3 weeks after hospital discharge or approximately 10/03 - 10/09/2017. Will have head CT per Neurosurgery.. His primary care provider is Dr. Warren Waldron. His neurologist is Dr. Geraldo Alatorre, and he has seen Dr. Melissa Hartmann at the [facility] in [place]. 09/27/17 12:47 10/02/17 11:14 10/02/17 11:18 Subjective: Chief complaint: Discharge planning No acute events overnight. Patient endorses no new shortness of breath or chest pain, no new numbness, tingling, or weakness. Patient states that he will be discharging to his existing [place] residence after leaving inpatient rehabilitation, he will recover further there with the ultimate goal to return to [place] at their new residence. Patient feels like things are going well and does not have significant concerns about this plan. Denies any lightheadedness today, blood pressure slightly low, endorses some orthostasis and counseled to stand slowly and squeeze his legs to help prevent any lightheadedness. Objective: Vital Signs Temp Pulse Resp BP Pulse Ox 36.9 C 87 16 95/72 L 95 10/02/17 06:28 10/02/17 06:28 10/02/17 06:28 10/02/17 06:28 10/02/17 06:28 Laboratory Results 09/30/17 06:00 10/01/17 06:10 10/01/17 10/02/17 10/03/17 05:59 05:59 05:59 Intake Total 1650 860 Output Total 2400 1300 Balance -750 -440 Physical Exam - Physical Exam General Appearance: WD/WN, alert, no apparent distress EENT: No scleral icterus (R), No scleral icterus (L) Respiratory: No respiratory distress, No accessory muscle use Cardiac/Chest: normal peripheral pulses, regular rate, rhythm, No edema Skin: normal color, warm/dry, No cyanosis, No diaphoresis Extremities: No pedal edema, No swelling Neuro/Psych: alert, normal mood/affect ICD10 Worksheet Patient Problems: Problems Problem Status Onset Afib Acute Intracranial hemorrhage Acute
[2017-10-03] MEDS: LEVOTHYROXINE 100 MCG TAB PO SCH (06:16)
[2017-10-03] MEDS ORDERED: TAMSULOSIN HCL 0.4 MG CAP PO SCH (12:30)
--- NOTE | 2017-10-03 14:38 | SOAPPROG ---
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 * Initial functional independence measure 72 on 09/21/2017, improved to 82 as of and 292 on 10/03/2016; all scores might be for points last due to use of condom cath at night. Mobility is standby assist with occasional contact guard assist using 4 wheeled walker or front wheeled walker. He has improved use of the right hand. He required supervision for upper body and lower body dressing with cues when he gets stuck. He has apraxia and decreased motor planning. Shower transfer requires close standby assist, bathing is done with minimal assist. Grooming and hygiene are done with modified independence after setup. Has difficulty with multistep motor planning for instance to negotiate leaving the sink in exiting the bathroom. More difficulty leaving walker and going from stand to sit than going from sit to stand. Can climb stairs but has freezing episodes when descending. * Continue PT and OT to optimize mobility and activities of daily living to the independent to modified independent level. Goals will include ability to safely climb and descend stairs. * Function and safety had decline when he is fatigued. * Asked nursing to ambulate with him after dinner and before bed. 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 * Mild to moderate deficits in problem solving, reasoning, attention, executive function. Decreased reading comprehension. * Decreased recall and implementation of strategies for safety. * Much improved fluency and vocal intensity. * Continue Speech and Language Pathology. *Nocturia. Trial of tamsulosin starting 10/03/2017. Is hoped that he can sleep without frequent interruptions to urinate, with continence, and not using the condom catheter. * Hyponatremia. Na 130 on 09/20/2017, down from 133 on 09/17/2017. Urine osmolalities less than serum osmolalities, not consistent with SIADH. * TSH and fasting cortisol normal, 09/21/2017. * Started oral sodium chloride replacement. Sodium improved from 130 to 132 on 09/21/2017; . * Normalized as of 09/24/2017. * Reduce NaCl supplement from three times daily to twice daily on 09/26/2017. Na normal on BMP on 09/28/2017. Reduce NaCl further to QD starting 09/27/2017. Na 138 on BMP 10/01/2017. D/C NaCl supplement. Resolved on labs 10/03/2017. * Depression vs. adjustment disorder with depressed mood * Noted to be emotionally labile. * Reports good sleep 09/24 - 09/25/2017. * Reports not feeling depressed and does not want antidepressants, on discussion 09/24/2017 and 09/25/2017. * Hypothyroidism. Continue levothyroxine. * Atrial fibrillation. Apixaban is contraindicated in the setting of recent intracranial hemorrhage. He is not tachycardic at present and he has a regular rhythm. He will be monitored for tachycardia and will consider rate control medications if they are necessary. * Gustavo 2 Vasc score is 1, corresponding to a 0.9% annual risk of stroke/TIA/ thromboembolism. Consider initiating anti-platelet agent. Unclear that he would need to resume anticoagulation. * Constipation. Started herbal preparation per 's preference; contains cascara. * Gluten allergy. He will have a dietary consult to optimize his nutrition. * Prophylaxis. Anticoagulation is contraindicated in the short term. Mobility is improving. Will not initiate anticoagulation at present. Continue to monitor regarding mobility. Attended staffing, 15 min. Discussed with case management, dietitian, nursing, PT, OT, PHYSICAL EDUCATION AIDE. Attended family meeting with patient and present. He and his are in the process of moving to [place] and their home in [place] is on the market. They were planning to occupy the new home in [place] in November. They have an interim option of house sitting in a ranch house for friends or out of town, in [place]. Working with Case Management on issue of home with verses to long-term facility if burden of care is too great for her. Continue discharge date of 10/05/2017. Followup: Followup with Neurosurgery 2-3 weeks after hospital discharge or approximately 10/03 - 10/09/2017. Will have head CT per Neurosurgery.. His primary care provider is Dr. Warren Waldron. His neurologist is Dr. Geraldo Alatorre, and he has seen Dr. Melissa Hartmann at the [facility] in [place]. 10/03/17 14:31 Subjective: Has been using condom cath at night and wants to try tamsulosin to see if he can be free of the condom cath. Otherwise without complaints. Working with therapies. Objective: Vital Signs Temp Pulse Resp BP Pulse Ox 36.5 C 88 17 104/72 95 10/03/17 08:00 10/03/17 13:41 10/03/17 08:00 10/03/17 13:41 10/03/17 08:00 Laboratory Results 09/30/17 06:00 10/03/17 06:30 10/02/17 10/03/17 10/04/17 05:59 05:59 05:59 Intake Total 860 500 190 Output Total 1300 900 200 Balance -440 -400 -10 - Time Spent With Patient Time Spent With Patient: Greater than 35 min floor time today, including more than 50% of time in coordination of care during staffing and family meetings, and counseling patient and . Physical Exam - Physical Exam General Appearance: WD/WN, alert, no apparent distress Respiratory: No respiratory distress, No accessory muscle use Skin: normal color, warm/dry, other (Bruising on right chin has resolved) Neuro/Psych: alert, normal mood/affect, oriented x 3, abnormal gait (Shuffling, short steps, with front wheeled walker.) ICD10 Worksheet Patient Problems: Problems Problem Status Onset Afib Acute Intracranial hemorrhage Acute
[2017-10-03] MEDS: TAMSULOSIN HCL 0.4 MG CAP PO SCH (20:48)
[2017-10-04] MEDS: LEVOTHYROXINE 100 MCG TAB PO SCH (05:02)
--- NOTE | 2017-10-04 09:22 | SOAPPROG ---
SOAP Progress Note Assessment/Plan: 72-year-old male status post intracranial hemorrhage with a history of cortical basal degeneration, impairments in mobility, self-care, cognition. Today's update: Doing well, no new issues. Therapy going well per patient and staff. No new orthostasis on Flomax, reports he did not have any incontinence last night. 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 * Initial functional independence measure 72 on 09/21/2017, improved to 82 as of and 292 on 10/03/2016; all scores might be for points last due to use of condom cath at night. Mobility is standby assist with occasional contact guard assist using 4 wheeled walker or front wheeled walker. He has improved use of the right hand. He required supervision for upper body and lower body dressing with cues when he gets stuck. He has apraxia and decreased motor planning. Shower transfer requires close standby assist, bathing is done with minimal assist. Grooming and hygiene are done with modified independence after setup. Has difficulty with multistep motor planning for instance to negotiate leaving the sink in exiting the bathroom. More difficulty leaving walker and going from stand to sit than going from sit to stand. Can climb stairs but has freezing episodes when descending. * Continue PT and OT to optimize mobility and activities of daily living to the independent to modified independent level. Goals will include ability to safely climb and descend stairs. * Function and safety had decline when he is fatigued. * Asked nursing to ambulate with him after dinner and before bed. 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 * Mild to moderate deficits in problem solving, reasoning, attention, executive function. Decreased reading comprehension. * Decreased recall and implementation of strategies for safety. * Much improved fluency and vocal intensity. * Continue Speech and Language Pathology. *Nocturia. Trial of tamsulosin starting 10/03/2017. Is hoped that he can sleep without frequent interruptions to urinate, with continence, and not using the condom catheter. * Hyponatremia. Na 130 on 09/20/2017, down from 133 on 09/17/2017. Urine osmolalities less than serum osmolalities, not consistent with SIADH. * TSH and fasting cortisol normal, 09/21/2017. * Started oral sodium chloride replacement. Sodium improved from 130 to 132 on 09/21/2017; . * Normalized as of 09/24/2017. * Reduce NaCl supplement from three times daily to twice daily on 09/26/2017. Na normal on BMP on 09/28/2017. Reduce NaCl further to QD starting 09/27/2017. Na 138 on BMP 10/01/2017. D/C NaCl supplement. Resolved on labs 10/03/2017. * Depression vs. adjustment disorder with depressed mood * Noted to be emotionally labile. * Reports good sleep 09/24 - 09/25/2017. * Reports not feeling depressed and does not want antidepressants, on discussion 09/24/2017 and 09/25/2017. * Hypothyroidism. Continue levothyroxine. * Atrial fibrillation. Apixaban is contraindicated in the setting of recent intracranial hemorrhage. He is not tachycardic at present and he has a regular rhythm. He will be monitored for tachycardia and will consider rate control medications if they are necessary. * Gustavo 2 Vasc score is 1, corresponding to a 0.9% annual risk of stroke/TIA/ thromboembolism. Consider initiating anti-platelet agent. Unclear that he would need to resume anticoagulation. * Constipation. Started herbal preparation per 's preference; contains cascara. * Gluten allergy. He will have a dietary consult to optimize his nutrition. * Prophylaxis. Anticoagulation is contraindicated in the short term. Mobility is improving. Will not initiate anticoagulation at present. Continue to monitor regarding mobility. He and his are in the process of moving to [place] and their home in [place] is on the market. They were planning to occupy the new home in [place] in November. They have an interim option of house sitting in a ranch house for friends or out of town, in [place]. Working with Case Management on issue of home with verses to long-term facility if burden of care is too great for her. Continue discharge date of 10/05/2017. Followup: Followup with Neurosurgery 2-3 weeks after hospital discharge or approximately 10/03 - 10/09/2017. Will have head CT per Neurosurgery.. His primary care provider is Dr. Warren Waldron. His neurologist is Dr. Geraldo Alatorre, and he has seen Dr. Melissa Hartmann at the [facility] in [place]. 09/27/17 12:47 10/02/17 11:14 10/02/17 11:18 10/04/17 09:19 Subjective: Chief complaint: Urinary incontinence No acute events overnight. Patient denies any new shortness of breath or chest pain, no new numbness, tingling, or weakness. He denies that he had any incontinence and has not had orthostasis on the new dose of Flomax. He is happy with the medication. No new concerns per the patient. Objective: Vital Signs Temp Pulse Resp BP Pulse Ox 36.6 C 68 18 112/68 96 10/04/17 05:04 10/04/17 05:04 10/03/17 18:47 10/04/17 05:04 10/04/17 05:04 Laboratory Results 09/30/17 06:00 10/03/17 06:30 10/03/17 10/04/17 10/05/17 05:59 05:59 05:59 Intake Total 500 540 Output Total 900 925 Balance -400 -385 Physical Exam - Physical Exam General Appearance: WD/WN, alert, no apparent distress EENT: No scleral icterus (R), No scleral icterus (L) Respiratory: No respiratory distress, No accessory muscle use Cardiac/Chest: normal peripheral pulses, regular rate, rhythm, No edema Skin: normal color, warm/dry, No cyanosis, No diaphoresis Extremities: No pedal edema, No swelling Neuro/Psych: alert, normal mood/affect ICD10 Worksheet Patient Problems: Problems Problem Status Onset Afib Acute Intracranial hemorrhage Acute
[2017-10-04] MEDS: TAMSULOSIN HCL 0.4 MG CAP PO SCH (21:43)
[2017-10-05] MEDS: LEVOTHYROXINE 100 MCG TAB PO SCH (05:59)
--- NOTE | 2017-10-05 09:48 | SOAPPROG ---
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 * Initial functional independence measure 72 on 09/21/2017, improved to 82 as of and to 92 on 10/03/2016; scores would be 4 points lower if accounted for use of condom catheter at night. Mobility is standby assist with occasional contact guard assist using 4 wheeled walker or front wheeled walker. He has improved use of the right hand. He required supervision for upper body and lower body dressing with cues when he gets stuck. He has apraxia and decreased motor planning. Shower transfer requires close standby assist, bathing is done with minimal assist. Grooming and hygiene are done with modified independence after setup. Has difficulty with multistep motor planning , e.g.to negotiate leaving the sink in exiting the bathroom. More difficulty leaving walker and going from stand to sit than going from sit to stand. Can climb stairs but has freezing episodes when descending. * Continue PT and OT to optimize mobility and activities of daily living to the independent to modified independent level. Goals will include ability to safely climb and descend stairs. * Function and safety decline when he is fatigued. * Asked nursing to ambulate with him after dinner and before bed. 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 * Mild to moderate deficits in problem solving, reasoning, attention, executive function. Decreased reading comprehension. * Decreased recall and implementation of strategies for safety. * Much improved fluency and vocal intensity. * Continue Speech and Language Pathology. *Nocturia. Trial of tamsulosin starting 10/03/2017. Reports he is doing better regarding nocturia at night. Consider increasing from 0.4 mg to 0.8 mg. * Depression vs. adjustment disorder with depressed mood * Noted to be emotionally labile. * Reports good sleep 09/24 - 09/25/2017. * Reports not feeling depressed and does not want antidepressants, on discussion 09/24/2017 and 09/25/2017. * Hypothyroidism. Continue levothyroxine. * Atrial fibrillation. Apixaban is contraindicated in the setting of recent intracranial hemorrhage. He is not tachycardic at present and he has a regular rhythm. He will be monitored for tachycardia and will consider rate control medications if they are necessary. * Gustavo 2 Vasc score is 1, corresponding to a 0.9% annual risk of stroke/TIA/ thromboembolism. Consider initiating anti-platelet agent. Unclear that he would need to resume anticoagulation. * Hyponatremia resolved. Na 130 on 09/20/2017, down from 133 on 09/17/2017. Urine osmolalities less than serum osmolalities, not consistent with SIADH. * TSH and fasting cortisol normal, 09/21/2017. * Started oral sodium chloride replacement. Sodium improved from 130 to 132 on 09/21/2017; normalized as of 09/24/2017. * Reduce NaCl supplement from three times daily to twice daily on 09/26/2017. Na normal on BMP on 09/28/2017. Reduce NaCl further to QD starting 09/27/2017. Na 138 on BMP 10/01/2017. D/C NaCl supplement. Resolved on labs 10/03/2017. * Constipation. Started herbal preparation per 's preference; contains cascara. * Gluten allergy. He will have a dietary consult to optimize his nutrition. * Prophylaxis. Anticoagulation is contraindicated in the short term. Mobility is improving. Will not initiate anticoagulation at present. Continue to monitor regarding mobility. He and his are in the process of moving to [place] and their home in [place] is on the market. They were planning to occupy the new home in [place] in November. They have an interim option of house sitting in a ranch house for friends or out of town, in [place]. Working with Case Management on issue of home with [facility] to correction facility if burden of care is too great for her. Tentative discharge date of 10/11/2017. Followup: Followup with Neurosurgery 2-3 weeks after hospital discharge or approximately 10/03 - 10/09/2017. Will have head CT per Neurosurgery.. His primary care provider is Dr. Warren Waldron. His neurologist is Dr. Geraldo Alatorre, and he has seen Dr. Melissa Hartmann at the [facility] in [place]. 10/05/17 12:35 Subjective: Feels he slept better last night and that his nocturia was more manageable. He reports that he was up 3 times. Otherwise no complaints. No fevers or chills, no cough or dyspnea. Objective: Vital Signs Temp Pulse Resp BP Pulse Ox 37.0 C 94 18 131/82 H 95 10/04/17 20:00 10/04/17 20:00 10/04/17 20:00 10/04/17 20:00 10/04/17 20:00 Laboratory Results 09/30/17 06:00 10/03/17 06:30 10/04/17 10/05/17 10/06/17 05:59 05:59 05:59 Intake Total 540 960 Output Total 925 1050 Balance -385 -90 Physical Exam - Physical Exam General Appearance: WD/WN, alert, no apparent distress Respiratory: No respiratory distress, No accessory muscle use Skin: normal color, warm/dry Neuro/Psych: alert, normal mood/affect, oriented x 3, abnormal gait (Slightly flexed at knees and hips, short steps, occasional shuffling or festinating.) ICD10 Worksheet Patient Problems: Problems Problem Status Onset Afib Acute Intracranial hemorrhage Acute
[2017-10-05] MEDS: TAMSULOSIN HCL 0.4 MG CAP PO SCH (21:14)
[2017-10-06] MEDS: LEVOTHYROXINE 100 MCG TAB PO SCH (06:20)
--- NOTE | 2017-10-06 13:18 | HOSPPROG ---
Hospitalist Progress Note Assessment/Plan: Assessment: 72 yo M p/w acute SDH and intraparenchymal hemorrhages s/p falls Plan: # SDH/IPH. Acute, resulting in ataxia - cont PT/OT # Chronic corticobasilar degeneration. Resulting in dysarthria and cog impairment, cont POLITICAL CONSULTANT # Suspected BPH. Cont tamsulosin # Paroxysmal Atrial Fibrillation. CHADS-VAsc 1, off anticoagulation given bleed , Dr. Hernandez will consider ASA and cards f/u # Hypothyroidism. Cont synthroid 100mcg daily, TSH checked 2 weeks ago and was 1.6 - unlikely cause of patient's low energy today, advised patient and RN to monitor for signs of infxn - f/u TSH as outpatient w/ Dr. Waldron # Hyponatremia. Acute, resolved Diet. Regular PPx. Mod risk, pharm contraindicated w/ bleed Code. Full Dispo. Ongoing therapy needs, anticipate 10/11 Subjective: reports low energy today, chronic cough, no other symptoms Objective: Vital Signs Temp Pulse Resp BP Pulse Ox 36.6 C 94 16 112/83 H 97 10/06/17 08:00 10/06/17 08:00 10/06/17 08:00 10/06/17 08:00 10/06/17 08:00 Laboratory Results 09/30/17 06:00 10/03/17 06:30 10/05/17 10/06/17 10/07/17 05:59 05:59 05:59 Intake Total 960 490 850 Output Total 1050 500 Balance -90 -10 850 - Physical Exam Constitutional: no apparent distress, not in pain, chronically ill appearing, No uncomfortable Cardiovascular: regular rate and rhythym, no murmur, rub, or gallop, No edema Respiratory: no respiratory distress, no rales or rhonchi, clear to auscultation Gastrointestinal: normoactive bowel sounds, soft, non-tender abdomen, no palpable masses Neurologic: AAOx3, sensation intact bilaterally, other (masked facies, halted speech and word finding difficulty), No weakness, No facial droop Psychiatric: not anxious, flat affect, poor memory, No agitated ICD10 Worksheet Patient Problems: Problems Problem Status Onset Afib Acute Intracranial hemorrhage Acute
[2017-10-06] MEDS: TAMSULOSIN HCL 0.4 MG CAP PO SCH (19:57)
[2017-10-07] MEDS: LEVOTHYROXINE 100 MCG TAB PO SCH (05:07)
--- NOTE | 2017-10-07 12:39 | HOSPPROG ---
Hospitalist Progress Note Assessment/Plan: Assessment: 72 yo M p/w acute SDH and intraparenchymal hemorrhages s/p falls in the setting of chronic corticobasilar degeneration Plan: # SDH/IPH. Acute, resulting in ataxia - cont PT/OT # Chronic corticobasilar degeneration. Resulting in dysarthria and cog impairment, cont [employer] - recommend ongoing outpt Neuro f/u # Suspected BPH. Cont tamsulosin, urinating well # Paroxysmal Atrial Fibrillation. CHADS-VAsc 1, off anticoagulation given bleed , Dr. Hernandez will consider ASA and cards f/u - in NSR on exam # Hypothyroidism. Cont synthroid 100mcg daily, TSH checked 2 weeks ago and was 1.6 - low energy on 10/06 but no signs of infxn - f/u TSH as outpatient w/ Dr. Waldron # Hyponatremia. Acute, resolved Diet. Regular PPx. Mod risk, pharm contraindicated w/ bleed Code. Full Dispo. Ongoing therapy needs, anticipate 10/11 Subjective: urinating and moving bowels well Objective: Vital Signs Temp Pulse Resp BP Pulse Ox 36.5 C 72 16 92/66 L 95 10/07/17 05:07 10/07/17 05:07 10/07/17 05:07 10/07/17 05:07 10/07/17 05:07 Laboratory Results 09/30/17 06:00 10/03/17 06:30 10/06/17 10/07/17 10/08/17 05:59 05:59 05:59 Intake Total 490 1750 240 Output Total 500 525 200 Balance -10 1225 40 - Physical Exam Constitutional: no apparent distress, not in pain, chronically ill appearing, No uncomfortable Cardiovascular: regular rate and rhythym, no murmur, rub, or gallop, No edema Respiratory: no respiratory distress, no rales or rhonchi, clear to auscultation Gastrointestinal: normoactive bowel sounds, soft, non-tender abdomen, no palpable masses, No distension Neurologic: AAOx3, sensation intact bilaterally, weakness (impaired extension R hand/fingers), other (vocal tremor and mild word-finding difficulty, but coherent speech) Psychiatric: not anxious, not encephalopathic, flat affect, No agitated ICD10 Worksheet Patient Problems: Problems Problem Status Onset Afib Acute Intracranial hemorrhage Acute
[2017-10-07] MEDS: TAMSULOSIN HCL 0.4 MG CAP PO SCH (21:43)
[2017-10-08] MEDS: LEVOTHYROXINE 100 MCG TAB PO SCH (05:13)
--- NOTE | 2017-10-08 13:57 | SOAPPROG ---
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 * Initial functional independence measure 72 on 09/21/2017, improved to 82 as of and to 92 on 10/03/2016; scores would be 4 points lower if accounted for use of condom catheter at night. Mobility is standby assist with occasional contact guard assist using 4 wheeled walker or front wheeled walker. He has improved use of the right hand. He required supervision for upper body and lower body dressing with cues when he gets stuck. He has apraxia and decreased motor planning. Shower transfer requires close standby assist, bathing is done with minimal assist. Grooming and hygiene are done with modified independence after setup. Has difficulty with multistep motor planning , e.g.to negotiate leaving the sink in exiting the bathroom. More difficulty leaving walker and going from stand to sit than going from sit to stand. Can climb stairs but has freezing episodes when descending. * Progressing towards independent in room. * Continue PT and OT to optimize mobility and activities of daily living to the independent to modified independent level. Goals will include ability to safely climb and descend stairs. * Function and safety decline when he is fatigued. * Asked nursing to ambulate with him after dinner and before bed. 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 * Mild to moderate deficits in problem solving, reasoning, attention, executive function. Decreased reading comprehension. * Decreased recall and implementation of strategies for safety. * Much improved fluency and vocal intensity. * Continue Speech and Language Pathology. *Nocturia. Trial of tamsulosin starting 10/03/2017. Reports he is doing better regarding nocturia at night. * Depression vs. adjustment disorder with depressed mood * Noted to be emotionally labile. * Reports good sleep 09/24 - 09/25/2017. * Reports not feeling depressed and does not want antidepressants, on discussion 09/24/2017 and 09/25/2017. * Hypothyroidism. Continue levothyroxine. * Atrial fibrillation. Apixaban is contraindicated in the setting of recent intracranial hemorrhage. He is not tachycardic at present and he has a regular rhythm. * Gustavo 2 Vasc score is 1, corresponding to a 0.9% annual risk of stroke/TIA/ thromboembolism. Consider initiating anti-platelet agent. Unclear that he would need to resume anticoagulation. * Hyponatremia resolved. Na 130 on 09/20/2017, down from 133 on 09/17/2017. Urine osmolalities less than serum osmolalities, not consistent with SIADH. * TSH and fasting cortisol normal, 09/21/2017. * Started oral sodium chloride replacement. Sodium improved from 130 to 132 on 09/21/2017; normalized as of 09/24/2017. * Reduce NaCl supplement from three times daily to twice daily on 09/26/2017. Na normal on BMP on 09/28/2017. Reduce NaCl further to QD starting 09/27/2017. Na 138 on BMP 10/01/2017. D/C NaCl supplement. Resolved on labs 10/03/2017. * Constipation. Started herbal preparation per 's preference; contains cascara. * Gluten allergy. He will have a dietary consult to optimize his nutrition. * Prophylaxis. Anticoagulation is contraindicated in the short term. Mobility is improving. Will not initiate anticoagulation at present. Continue to monitor regarding mobility. He and his are in the process of moving to [place] and their home in [place] is on the market. They were planning to occupy the new home in [place] in November. They have an interim option of house sitting in a ranch house in [place] for friends or out of town. Tentative discharge date of 10/11/2017. Followup: Followup with Neurosurgery 2-3 weeks after hospital discharge or approximately 10/03 - 10/09/2017. Will have head CT per Neurosurgery.. His primary care provider is Dr. Warren Waldron. His neurologist is Dr. Geraldo Alatorre, and he has seen Dr. Melissa Hartmann at the [facility] in [place]. 10/08/17 13:55 Subjective: Feels fatigued today after several days of feeling better. Concerned because nurse noted an irregular heartbeat this morning. Has not noted palpitations. No dyspnea or cough, no fevers or chills. Sleeping well. Objective: Vital Signs Temp Pulse Resp BP Pulse Ox 36.6 C 81 12 120/80 92 10/08/17 05:14 10/08/17 05:14 10/08/17 05:14 10/08/17 06:46 10/08/17 05:14 Laboratory Results 09/30/17 06:00 10/03/17 06:30 10/07/17 10/08/17 10/09/17 05:59 05:59 05:59 Intake Total 1750 660 120 Output Total 525 1750 200 Balance 1225 -1090 -80 Physical Exam - Physical Exam General Appearance: WD/WN, alert, no apparent distress Respiratory: normal breath sounds, No crackles, No rhonchi, No wheezing Cardiac/Chest: regular rate, rhythm, No edema, No diastolic murmur, No systolic murmur Skin: normal color, warm/dry Neuro/Psych: alert, normal mood/affect, speech abnormalities (Episodes of hesitation followed by very rapid speech.) ICD10 Worksheet Patient Problems: Problems Problem Status Onset Afib Acute Intracranial hemorrhage Acute
[2017-10-08] MEDS: TAMSULOSIN HCL 0.4 MG CAP PO SCH (21:34)
[2017-10-09] MEDS: LEVOTHYROXINE 100 MCG TAB PO SCH (05:29)
--- NOTE | 2017-10-09 12:10 | PDOREHIP ---
Admission [facility] - Admission - 3 Day Assessment Period Admission Date/Day 1: 09/19/17 Day 2: 09/20/17 Day 3: 09/21/17 Discharge [facility] - Discharge - 3 Day Assessment Period 2 Days Prior to Anticipated Discharge Date: 10/09/17 1 Day Prior to Anticipated Discharge Date: 10/10/17 Anticipated Discharge Date: 10/11/17 - Discharge Skin Conditions Unhealed Pressure Ulcer (1 or more/Stage 1 or >)-Discharge: 0. No
--- NOTE | 2017-10-09 12:14 | SOAPPROG ---
SOAP Progress Note Assessment/Plan: 72-year-old male status post intracranial hemorrhage with a history of cortical basal degeneration, impairments in mobility, self-care, cognition. Today's update: Feels that the Flomax may be causing irritability, he did not notice much improvement in his symptoms per his report. He had good response early on but says that he was up 6 times last night. Counseled him as well about fluid management and he stated that he has had these symptoms since college. Stopping Flomax, he elected not to try another option such as oxybutynin. Would not recommend DDAVP because of the high risk of hyponatremia in this patient in particular and also an elderly patients. A total of 35 min was spent on the floor in the care of the patient, the majority of which was spent counseling and coordination of care regarding treatment options for nocturia as well as discharge planning and preparation. 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 * Initial functional independence measure 72 on 09/21/2017, improved to 82 as of and to 92 on 10/03/2016; scores would be 4 points lower if accounted for use of condom catheter at night. Mobility is standby assist with occasional contact guard assist using 4 wheeled walker or front wheeled walker. He has improved use of the right hand. He required supervision for upper body and lower body dressing with cues when he gets stuck. He has apraxia and decreased motor planning. Shower transfer requires close standby assist, bathing is done with minimal assist. Grooming and hygiene are done with modified independence after setup. Has difficulty with multistep motor planning , e.g.to negotiate leaving the sink in exiting the bathroom. More difficulty leaving walker and going from stand to sit than going from sit to stand. Can climb stairs but has freezing episodes when descending. * Progressing towards independent in room. * Continue PT and OT to optimize mobility and activities of daily living to the independent to modified independent level. Goals will include ability to safely climb and descend stairs. * Function and safety decline when he is fatigued. * Asked nursing to ambulate with him after dinner and before bed. 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 * Mild to moderate deficits in problem solving, reasoning, attention, executive function. Decreased reading comprehension. * Decreased recall and implementation of strategies for safety. * Much improved fluency and vocal intensity. * Continue Speech and Language Pathology. *Nocturia. . Tamsulosin because of reported side effects. He is not interested in oxybutynin or other treatment option. DDAVP contraindicated because of his hyponatremia * Depression vs. adjustment disorder with depressed mood * Noted to be emotionally labile. * Reports good sleep 09/24 - 09/25/2017. * Reports not feeling depressed and does not want antidepressants, on discussion 09/24/2017 and 09/25/2017. * Hypothyroidism. Continue levothyroxine. * Atrial fibrillation. Apixaban is contraindicated in the setting of recent intracranial hemorrhage. He is not tachycardic at present and he has a regular rhythm. * Gustavo 2 Vasc score is 1, corresponding to a 0.9% annual risk of stroke/TIA/ thromboembolism. Consider initiating anti-platelet agent. Unclear that he would need to resume anticoagulation. * Hyponatremia resolved. Na 130 on 09/20/2017, down from 133 on 09/17/2017. Urine osmolalities less than serum osmolalities, not consistent with SIADH. * TSH and fasting cortisol normal, 09/21/2017. * Started oral sodium chloride replacement. Sodium improved from 130 to 132 on 09/21/2017; normalized as of 09/24/2017. * Reduce NaCl supplement from three times daily to twice daily on 09/26/2017. Na normal on BMP on 09/28/2017. Reduce NaCl further to QD starting 09/27/2017. Na 138 on BMP 10/01/2017. D/C NaCl supplement. Resolved on labs 10/03/2017. * Avoid DDAVP * Constipation. Started herbal preparation per 's preference; contains cascara. * Gluten allergy. He will have a dietary consult to optimize his nutrition. * Prophylaxis. Anticoagulation is contraindicated in the short term. Mobility is improving. Will not initiate anticoagulation at present. Continue to monitor regarding mobility. He and his are in the process of moving to [place] and their home in [place] is on the market. They were planning to occupy the new home in [place] in November. They have an interim option of house sitting in a ranch house in [place] for friends or out of town. Tentative discharge date of 10/11/2017. Followup: Followup with Neurosurgery 2-3 weeks after hospital discharge or approximately 10/03 - 10/09/2017. Will have head CT per Neurosurgery.. His primary care provider is Dr. Warren Waldron. His neurologist is Dr. Geraldo Alatorre, and he has seen Dr. Melissa Hartmann at the [facility] in [place]. 09/27/17 12:47 10/02/17 11:14 10/02/17 11:18 10/04/17 09:19 10/09/17 12:10 Subjective: Chief complaint: Nocturia No acute events overnight. Patient denies any new shortness of breath or chest pain, no new numbness, tingling, or weakness. Patient states that he no longer has any benefit from the Flomax. He feels that it makes him more irritable. He states that he was up urinating 6 times last night. Electing to stop the Flomax. He also does not want any additional treatment after options were discussed with him. Patient planning to discharge locally in [place] Objective: Vital Signs Temp Pulse Resp BP Pulse Ox 36.6 C 94 16 116/87 H 95 10/09/17 08:45 10/09/17 08:45 10/09/17 08:45 10/09/17 08:45 10/09/17 08:45 Laboratory Results 09/30/17 06:00 10/03/17 06:30 10/08/17 10/09/17 10/10/17 05:59 05:59 05:59 Intake Total 660 595 Output Total 1750 825 Balance -1090 -230 Physical Exam - Physical Exam General Appearance: WD/WN, alert, no apparent distress EENT: No scleral icterus (R), No scleral icterus (L) Respiratory: No respiratory distress, No accessory muscle use Cardiac/Chest: normal peripheral pulses, regular rate, rhythm, No edema Skin: normal color, warm/dry, No cyanosis, No diaphoresis Extremities: No pedal edema, No swelling Neuro/Psych: alert, normal mood/affect, other (Stutter) ICD10 Worksheet Patient Problems: Problems Problem Status Onset Afib Acute Intracranial hemorrhage Acute
[2017-10-10] MEDS: LEVOTHYROXINE 100 MCG TAB PO SCH (06:08)
--- NOTE | 2017-10-10 09:31 | SOAPPROG ---
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 * Initial functional independence measure 72 on 09/21/2017, improved to 82 as of , to 88 on 10/03/2016, and 98 on 10/10/2017. Independent in room from 7: 00 a.m. to 10:00 p.m.. Climbed and descended stairs with standby assist using tracking pole. Requires setup and intermittent supervision for activities of daily living. Grooming and hygiene are done with modified independence after setup; requires extra time. * Continue PT and OT to optimize mobility and activities of daily living to the independent to modified independent level. Goals will include ability to safely climb and descend stairs. * Function and safety decline when he is fatigued. * Had home visit 10/09/2017. Will be able to live on main level, with air mattress, rather than ascending and descending stairs to bedroom. * Asked nursing to ambulate with him after dinner and before bed. 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 * Mild to moderate deficits in problem solving, reasoning, attention, executive function. Decreased reading comprehension. * Decreased recall and implementation of strategies for safety. * Much improved fluency and vocal intensity, but variable. Needs cues to maintain respiratory support. * Continue Speech and Language Pathology. *Nocturia. Trial of tamsulosin starting 10/03/2017. Improved nocturia initially but subsequently patient became concerned that it was causing irritability and not helping very much. Discontinued 10/09/2017.. * Depression vs. adjustment disorder with depressed mood * Noted to be emotionally labile. * Reports good sleep 09/24 - 09/25/2017. * Reports not feeling depressed and does not want antidepressants, on discussion 09/24/2017 and 09/25/2017. * Hypothyroidism. Continue levothyroxine. * Atrial fibrillation. Apixaban is contraindicated in the setting of recent intracranial hemorrhage. He is not tachycardic at present and he has a regular rhythm. * Gustavo 2 Vasc score is 1, corresponding to a 0.9% annual risk of stroke/TIA/ thromboembolism. Consider initiating anti-platelet agent. Unclear that he would need to resume anticoagulation. * Hyponatremia resolved. Na 130 on 09/20/2017, down from 133 on 09/17/2017. Urine osmolalities less than serum osmolalities, not consistent with SIADH. * TSH and fasting cortisol normal, 09/21/2017. * Started oral sodium chloride replacement. Sodium improved from 130 to 132 on 09/21/2017; normalized as of 09/24/2017. * Reduce NaCl supplement from three times daily to twice daily on 09/26/2017. Na normal on BMP on 09/28/2017. Reduce NaCl further to QD starting 09/27/2017. Na 138 on BMP 10/01/2017. D/C NaCl supplement. Resolved on labs 10/03/2017. * Constipation. Started herbal preparation per 's preference; contains cascara. * Gluten allergy. He will have a dietary consult to optimize his nutrition. * Prophylaxis. Anticoagulation is contraindicated in the short term. Mobility is improving. Will not initiate anticoagulation at present. Continue to monitor regarding mobility. Attended staffing, 15 min. Discussed with case management, dietitian, nursing, PT, OT, [employer]. Discharge date of 10/11/2017. Followup: Followup with Neurosurgery 2-3 weeks after hospital discharge or approximately 10/03 - 10/09/2017. Will have head CT per Neurosurgery. His primary care provider is Dr. Warren Waldron. His neurologist is Dr. Geraldo Alatorre, and he has seen Dr. Melissa Hartmann at the [facility] in [place]. 10/10/17 12:20 Subjective: No complaints. Slept well. Not in pain. No cough or dyspnea. No fevers or chills. Wonders if he should be taking more salt in his diet. He reports he generally does not take much salt. Objective: Vital Signs Temp Pulse Resp BP Pulse Ox 36.5 C 93 17 130/91 H 95 10/09/17 19:34 10/09/17 19:34 10/09/17 19:34 10/09/17 19:34 10/09/17 19:34 Laboratory Results 09/30/17 06:00 10/03/17 06:30 10/09/17 10/10/17 10/11/17 05:59 05:59 05:59 Intake Total 595 850 Output Total 825 1000 Balance -230 -150 - Time Spent With Patient Time Spent With Patient: Greater than 35 min floor time today, including more than 50% of time in coordination of care during staffing meeting, and counseling patient. Physical Exam - Physical Exam General Appearance: WD/WN, alert, no apparent distress Respiratory: normal breath sounds, No crackles, No rhonchi, No wheezing Cardiac/Chest: regular rate, rhythm, No diastolic murmur, No systolic murmur Neuro/Psych: no motor/sensory deficits, alert, normal mood/affect, oriented x 3 , abnormal gait (Flexed posture, short steps, narrow base. With trekking pole.) , speech abnormalities (Rapid, stuttering.) ICD10 Worksheet Patient Problems: Problems Problem Status Onset Afib Acute Intracranial hemorrhage Acute
[2017-10-11] MEDS: LEVOTHYROXINE 100 MCG TAB PO SCH (06:32)
[2017-10-11 06:36] VITALS: BP 113/79
--- NOTE | 2017-10-11 09:10 | PDDCSUM ---
Discharge Summary Discharge Summary: Inpatient rehabilitation discharge summary Name: Mick Styles Admission date: 09/19/2017 Discharge date: 10/11/2017 Discharging physician: Omi Miramontes MD, Jason Hernandez MD Admitting diagnosis: 2.22, subarachnoid hemorrhage and subdural hemorrhage status post fall with underlying cortical basal degeneration, traumatic brain injury, closed Discharge diagnosis: Same Comorbid diagnoses: Motor apraxia, ataxia, dysarthria, cognitive impairment, nocturia, depression versus adjustment disorder with depressed mood, hypothyroidism, atrial fibrillation, hyponatremia, constipation, gluten allergy Consultations: physical therapy, occupational therapy, speech language pathology , dietary, social work Procedures: None Reason for admission: Please see the full history and physical by Dr. Jason Hernandez performed on 09/19/2017 for full details, however briefly the patient has a longstanding history of cortical basal degeneration with history of frequent falls, history of atrial fibrillation on apixaban who presented on 07/2017 to [facility] after mechanical fall with a subarachnoid hemorrhage in the right posterior frontal cortical area, and other places. He also had a small chronic subdural hemorrhage adjacent to the subarachnoid hemorrhage. His anticoagulation was stopped and he was monitored. He was admitted to inpatient rehabilitation for impairments in mobility, self-care, cognition. Rehabilitation course: He made steady progress on inpatient rehabilitation with an initial functional independence measure of 72 and ultimately was discharging around 98 as of 10/10. His function is essentially independent in the room during the day and he was able to navigate stairs with standby assistance and a trekking pole. ADLs require some set up and intermittent assistance. Home visit indicated that he is able to live on the main level with an air mattress upon discharge. He had mild to moderate deficits in problem solving, reasoning, attention, and executive function. From medical standpoint, he had a trial of tamsulosin for nocturia but he did not like the side effects and did not feel that it helped and he discontinued it. He had somewhat low mood but was improving and did not want to try antidepressants and was working with a counselor. He continued on levothyroxine for his hypothyroidism. Regarding his atrial fibrillation, anticoagulation was held on this is deferred to his outpatient providers as to whether not to restart it given his risk of fall in intracranial bleed. He had hyponatremia that resolved , but was a contraindication for DDAVP. Discharge plan: Discharging home with family assistance as well as home health PT, OT, and speech therapy. Medications at discharge: Levothyroxine 100 mcg daily Pending studies: None Issues to be addressed at follow-up: Decision with ongoing practitioners about his anticoagulation plan given his history of falls and stroke and his history of atrial fibrillation. Follow up: Patient will follow up with his primary care physician Dr. Warren Waldron, follow up with Neurosurgery in 2-3 weeks after discharge or 418-4 10/[address] Will also follow up with Dr. Geraldo Alatorre his neurologist and Dr. Melissa Hartmann of [facility]. Today the patient had no particular questions or concerns. He was looking forward to going home. Denies any new shortness of breath or chest pain, no new numbness, tingling, or weakness. Exam was notable for being in no apparent distress, eyes were anicteric, he was breathing comfortably on room air, cardiac was regular rate and rhythm, pulses were full of the wrist. He had ongoing upper and lower limb ataxia. Ongoing stuttering speech but otherwise logical in conversation. Ambulating with a trekking pole. A total of 35 min was spent on the floor in the preparation of discharge today, the majority of which was spent in the counseling and coordination of care regarding that discharge planning.
== END 2017-10-11 13:58 | disposition home or self-care (01) | DRG 945 ==
LOC: BREH 15:05
PROVIDERS: ADMIT Internal Medicine; ATTEND Internal Medicine
PROC: F06 Physical Rehabilitation and Diagnostic Audiology, Rehabilitation, Speech Treatment (ICD-10-PCS; principal; 2017-09-19)
PROC: F08Z0FZ Bathing/Showering Techniques Treatment using Assistive, Adaptive, Supportive or Protective Equipment (ICD-10-PCS; principal; 2017-09-19)
PROC: F07Z5FZ Bed Mobility Treatment using Assistive, Adaptive, Supportive or Protective Equipment (ICD-10-PCS; principal; 2017-09-19)
PROC: F07Z8FZ Transfer Training Treatment using Assistive, Adaptive, Supportive or Protective Equipment (ICD-10-PCS; principal; 2017-09-19)
PROC: F08Z1FZ Dressing Techniques Treatment using Assistive, Adaptive, Supportive or Protective Equipment (ICD-10-PCS; principal; 2017-09-19)
DX: S06.6X9D Traumatic subarachnoid hemorrhage with loss of consciousness of unspecified duration, subsequent encounter (principal); S06.5X9D Traumatic subdural hemorrhage with loss of consciousness of unspecified duration, subsequent encounter; G31.85 Corticobasal degeneration; R41.841 Cognitive communication deficit; R47.1 Dysarthria and anarthria; I48.91 Unspecified atrial fibrillation; E87.1 Hypo-osmolality and hyponatremia; E03.9 Hypothyroidism, unspecified; K90.41 Non-celiac gluten sensitivity; W19.XXXD Unspecified fall, subsequent encounter; Z91.81 History of falling; Z87.891 Personal history of nicotine dependence; Z79.01 Long term (current) use of anticoagulants
CPT/HCPCS: 82607-90; 92507-GN; 92522-GN; 92610-GN; 97110-GO; 97110-GP; 97112-GO; 97112-GP; 97116-GP; 97162-GP; 97166-GO; 97530-GO; 97530-GP; 97535-GO; 99366-GO

== ENCOUNTER → 2017-10-15 | Outpatient (CLI) | payer OTHER, MEDICARE | LOC: FIMAGING 10:47 | PROVIDERS: ATTEND Neurological Surgery | DX: Z09 Encounter for follow-up examination after completed treatment for conditions other than malignant neoplasm (principal); S06.5X0D Traumatic subdural hemorrhage without loss of consciousness, subsequent encounter ==